=== PATIENT | male | born 1965 | race Caucasian/White ===

== ENCOUNTER 2016-07-27 17:03 | Inpatient (IN) | payer OTHER ==
[2016-07-27] VITALS (29 sets, daily range): BP systolic 200–295; BP diastolic 88–155; PULSE 87–117; RESP 15–32; TEMP 98.1–99.5; O2SAT 94–99
[~2016-07-27] VITALS: Ht 177.8 cm; Wt 108.8 kg
[~2016-07-27 17:03] MED LIST: DILA2TAB4 PO; IBUP-232 PO; PROM25SU8 PO; TAMS0.4C67 PO; Z.0.NO CURRENT MEDS
[2016-07-27] MEDS ORDERED: ASPIRIN 325 MG TAB PO ONE (17:30)
[2016-07-27] MEDS ORDERED: SODIUM CHLORIDE 0.9% FLUSH 5 ML FLUSH IVF PRN (17:30)
[2016-07-27 17:36] LABS: AUTOMATED NEUTROPHIL # 9.9 TH/MM3 (1.8-7.7); BASOPHIL # 0.1 TH/MM3 (0-0.2); BASOPHIL % 0.9 % (0.0-2.0); EOSINOPHIL # 0.3 TH/MM3 (0-0.4); EOSINOPHIL % 2.7 % (0.0-4.0); HEMATOCRIT 42.5 % (39.0-51.0); HEMO FLAGS DIFF FINAL; LYMPHOCYTE # 1.2 TH/MM3 (1.0-4.8); MEAN CORPUSCULAR HEMOGLOBIN 27.8 PG (27.0-34.0); MEAN CORPUSCULAR HGB CONC 33.9 % (32.0-36.0); MONO % 5.6 % (0.0-8.0); NEUT % 80.8 % (16.0-70.0); PLATELET COUNT 268 TH/MM3 (150-450); RED BLOOD COUNT 5.18 MIL/MM3 (4.50-5.90); RED CELL DISTRIBUTION WIDTH 13.6 % (11.6-17.2); WHITE BLOOD COUNT 12.2 TH/MM3 (4.0-11.0)
[2016-07-27] MEDS ORDERED: ASPI-110 PO (17:37)
--- NOTE | 2016-07-27 17:44 | RADRPT ---
EXAM DATE/TIME: 07/27/2016 17:36 [facility] COMPARISON: No previous studies available for comparison. INDICATIONS : Shortness of breath. MEDICAL HISTORY : None. SURGICAL HISTORY : None. ENCOUNTER: Initial ACUITY: 1 week PAIN SCORE: 0/10 LOCATION: Bilateral chest FINDINGS: A single view of the chest demonstrates the lungs to be symmetrically aerated without evidence of mas s, infiltrate or effusion. The cardiomediastinal contours are unremarkable. Osseous structures are intact. CONCLUSION: No acute disease. Anand Sultana MD on July 27, 2016 at 17:43 Board Certified Radiologist. This report was verified electronically.
[2016-07-27] MEDS ORDERED: cloNIDine HCL 0.1 MG TAB PO ONE (17:45)
[2016-07-27] MEDS ORDERED: NITROGLYCERIN-DEXTROSE INJ 250 ML IV SCH (17:45)
--- NOTE | 2016-07-27 17:54 | PD ---
HPI Chief Complaint: Hypertension Time Seen by Provider: 17:47 Travel History International Travel<30 days: No Contact w/Intl Traveler<30days: No Traveled to known affect area: No History of Present Illness HPI 51-year-old male that presents to the ED for evaluation of severe hypertension. Per patient for the past 2 weeks she's been having cold-like symptoms that he acuity to bronchitis. Per patient his been taking [id number] remedies with some relief. Patient took NyQuil and DayQuil as well as some [place] cold medications to help with the cough and runny nose. Per patient he went recently collar out of medication and he came back with the same symptoms. Per patient he went to the urgent care today to get checked for this but the urgent care evaluated him and found that his blood pressure was in the systolic 300s. Patient was told to come here immediately get checked for this. 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 Per patient he didn't go to any medications he didn't think much of it. Per patient he does take aspirin every day and takes all negative fatty acids. Per patient he has no chest pain. Per patient he has no other symptoms or to cough and runny nose. He states that he has no allergies to medication. He does have asked family history of heart disease on the father's side but not on himself. He denies any surgeries to his chest. He denies having a stress test. He denies any other medical problems. Patient does have a strong family history of high blood pressure in the family. [facility] Past Medical History Medical History: Denies Significant Hx Influenza Vaccination: No Past Surgical History Surgical History: No Previous Surgery Social History Alcohol Use: Yes (OCCAS) Tobacco Use: Yes (CIGARS OCCASIONALLY) Substance Use: No Allergies-Medications (Allergen,Severity, Reaction): Coded Allergies: No Known Allergies (Verified , 07/27/16) Reported Meds & Prescriptions Reported Meds & Active Scripts Active Reported Aspirin 81 (Aspirin) 81 Mg Tabdr 81 Mg PO DAILY Review of Systems Except as stated in HPI: all other systems reviewed are Neg Physical Exam Narrative GENERAL: SKIN: Warm and dry. HEAD: Atraumatic. Normocephalic. EYES: Pupils equal and round. No scleral icterus. No injection or drainage. ENT: No nasal bleeding or discharge. Mucous membranes pink and moist. Tongue is midline. No Uvula deviation. NECK: Trachea midline. No JVD. CARDIOVASCULAR: Regular rate and rhythm. No obvious murmurs, S3, S4. RESPIRATORY: No accessory muscle use. Patient has mild wheezing in all lung garcia bilaterally. Breath sounds equal bilaterally. GASTROINTESTINAL: Abdomen soft, non-tender, nondistended. Hepatic and splenic margins not palpable. MUSCULOSKELETAL: Extremities without clubbing, cyanosis, or edema. No obvious deformities. Full range of motion of the upper and lower extremities bilaterally. 2+ pulses bilaterally. NEUROLOGICAL: Awake and alert. No obvious cranial nerve deficits. Motor grossly within normal limits. Five out of 5 muscle strength in the arms and legs. Normal speech. PSYCHIATRIC: Appropriate mood and affect; insight and judgment normal. Data Data Last Documented VS Vital Signs Date Time Temp Pulse Resp B/P Pulse Ox O2 Delivery O2 Flow Rate FiO2 07/27/16 19:45 107 16 228/120 95 Nasal Cannula 2 07/27/16 17:24 98.6 Orders Electrocardiogram (07/27/16 17:25) Basic Metabolic Panel (Bmp) (07/27/16 17:25) Ckmb (Isoenzyme) Profile (07/27/16 17:25) Complete Blood Count With Diff (07/27/16 17:25) D-Dimer (07/27/16 17:25) Magnesium (Mg) (07/27/16 17:25) Prothrombin Time / Inr (Pt) (07/27/16 17:25) Act Partial Throm Time (Ptt) (07/27/16 17:25) Troponin I (07/27/16 17:25) Chest, Single Ap (07/27/16 17:25) Ecg Monitoring (07/27/16 17:25) Bilateral Bp Monitoring (07/27/16 17:25) Iv Access Insert/Monitor (07/27/16 17:25) Oximetry (07/27/16 17:25) Oxygen Administration (07/27/16 17:25) Aspirin (Aspirin) (07/27/16 17:30) Sodium Chloride 0.9% Flush (Ns Flush) (07/27/16 17:30) Clonidine (Catapres) (07/27/16 17:45) Nitroglycerin-Dextrose Inj (Nitroglyceri (07/27/16 17:45) CKMB (07/27/16 17:29) CKMB% (07/27/16 17:29) B-Type Natriuretic Peptide (07/27/16 18:08) Ct Pulmonary Angiogram (07/27/16 18:20) Iohexol 350 Inj (Omnipaque 350 Inj) (07/27/16 19:50) Blood Culture (07/27/16 20:04) Ceftriaxone Inj (Rocephin Inj) (07/27/16 20:15) Azithromycin Inj (Zithromax Inj) (07/27/16 20:15) Potassium Chloride (Kcl) (07/27/16 20:15) Admit Order (Ed Use Only) (07/27/16 20:04) Labs Laboratory Tests Test 07/27/16 17:29 White Blood Count 12.2 TH/MM3 Red Blood Count 5.18 MIL/MM3 Hemoglobin 14.4 GM/DL Hematocrit 42.5 % Mean Corpuscular Volume 82.0 FL Mean Corpuscular Hemoglobin 27.8 PG Mean Corpuscular Hemoglobin 33.9 % Concent Red Cell Distribution Width 13.6 % Platelet Count 268 TH/MM3 Mean Platelet Volume 7.0 FL Neutrophils (%) (Auto) 80.8 % Lymphocytes (%) (Auto) 10.0 % Monocytes (%) (Auto) 5.6 % Eosinophils (%) (Auto) 2.7 % Basophils (%) (Auto) 0.9 % Neutrophils # (Auto) 9.9 TH/MM3 Lymphocytes # (Auto) 1.2 TH/MM3 Monocytes # (Auto) 0.7 TH/MM3 Eosinophils # (Auto) 0.3 TH/MM3 Basophils # (Auto) 0.1 TH/MM3 CBC Comment DIFF FINAL Differential Comment Prothrombin Time 11.1 SEC Prothromb Time International 1.0 RATIO Ratio Activated Partial 33.8 SEC Thromboplast Time D-Dimer Quantitative (PE/DVT) 0.95 MG/L FEU Sodium Level 138 MEQ/L Potassium Level 3.1 MEQ/L Chloride Level 100 MEQ/L Carbon Dioxide Level 29.2 MEQ/L Anion Gap 9 MEQ/L Blood Urea Nitrogen 16 MG/DL Creatinine 1.38 MG/DL Estimat Glomerular Filtration 55 ML/MIN Rate Random Glucose 109 MG/DL Calcium Level 8.9 MG/DL Magnesium Level 2.3 MG/DL Total Creatine Kinase 162 U/L Creatine Kinase MB 0.9 NG/ML Troponin I 0.02 NG/ML B-Type Natriuretic Peptide 201 PG/ML MDM Medical Decision Making Medical Screen Exam Complete: Yes Emergency Medical Condition: Yes Medical Record Reviewed: Yes Interpretation(s) CBC & BMP Diagram 07/27/16 17:29 d-dimmer positive in the .90s troponin negative BNp slightly elevated EKG shows sinus tachycardia with no sign of acute ischemia read by me and attending. Last Impressions CT Angiography 07/27/16 1820 Signed Impressions: Service Date/Time: July 19:32 - CONCLUSION: 1. No pulmonary embolus. 2. Suspected mild failure. Heart size relatively normal. Small to moderate, age and etiology-indeterminate pericardial effusion. Doubt tamponade. 3. Fatty liver. Anand Goodman MD Chest X-Ray 07/27/16 1725 Signed Impressions: Service Date/Time: July 17:36 - CONCLUSION: No acute disease. Anand Sultana MD Differential Diagnosis Hypertensive emergency versus hypertensive urgency versus bronchitis versus chest pain versus ACS versus PE Narrative Course 51-year-old male that presents to the ED for evaluation of hypertension. Patient was properly examined and was found to have signs and symptoms very concerning for hypertensive emergency. That EKG initially shows sinus tachycardia with some ST changes which are concerning. Case was discussed with my attending who recommends cardiac workup. Patient does tell me and my attending who evaluated the patient his been taking a lot of cough medicine with phenylephrine. Labs and imaging were ordered. Patient was a valid by my attending who recommends starting nitro drip. Patient was started nitro drip. Patient had elevated d-dimer therefore pulmonary angiogram was ordered. Pulmonary angiogram was negative for PE but did show some pulmonary edema. Case was discussed in my attending Dr. Bauer who recommends admission. He himself spoke with Dr. Roth who agrees to admission to the [facility] unit and start treatment for possible pneumonia secondary to the pulmonary effusion and possible consolidation with consult to cardiology. Patient and family were made aware of findings and agree with plan. Procedures EKG Prior to Arrival: No Diagnosis Primary Impression: Hypertensive emergency Additional Impression: Pneumonia Qualified Code: J18.9 - Pneumonia of both lungs due to infectious organism, unspecified part of lung Admitting Information Admitting Physician Requests: Admit Mike Nunez Jul 27, 2016 17:54
[2016-07-27 17:57] LABS: ANION GAP 9 MEQ/L (5-15); BICARBONATE 29.2 MEQ/L (21.0-32.0); BLOOD UREA NITROGEN 16 MG/DL (7-18); CHLORIDE 100 MEQ/L (98-107); GLOMERULAR FILTRATION RATE 55 ML/MIN (>89); MAGNESIUM 2.3 MG/DL (1.5-2.5); POTASSIUM 3.1 MEQ/L (3.5-5.1); SODIUM (NA) 138 MEQ/L (136-145)
[2016-07-27 18:00] LABS: CREATINE KINASE 162 U/L (39-308)
[2016-07-27 18:11] LABS: APTT (PATIENT) 33.8 SEC (24.3-30.1); PROTHROMBIN TIME - PATIENT 11.1 SEC (9.8-11.6)
[2016-07-27 18:12] LABS: CKMB 0.9 NG/ML (0.5-3.6)
--- NOTE | 2016-07-27 19:16 | PD ---
Physical Exam Date Seen by Provider: Jul 27, 2016 Time Seen by Provider: 18:00 Narrative I, Dr. Alegre, have reviewed the advance practice practitioner's documentation and am in agreement, met with the patient face to face, made the diagnosis, and the medical decision making was done by me. *My assessment and Findings: Patient seen and evaluated with PA, here with significant blood pressure elevations, sent in by urgent care after having been seen for cough cold symptoms and shortness of breath. Please see PA note for further details. He has been on cold remedies which include phenylephrine. Patient was initiated on IV nitroglycerin for his significant blood pressure elevations. EKG shows signs of LVH. Lab work initiated, planning to admit the patient for further treatment. Data Data Last Documented VS Vital Signs Date Time Temp Pulse Resp B/P Pulse Ox O2 Delivery O2 Flow Rate FiO2 07/27/16 19:08 108 16 274/145 97 Nasal Cannula 2 07/27/16 17:24 98.6 Orders Electrocardiogram (07/27/16 17:25) Basic Metabolic Panel (Bmp) (07/27/16 17:25) Ckmb (Isoenzyme) Profile (07/27/16 17:25) Complete Blood Count With Diff (07/27/16 17:25) D-Dimer (07/27/16 17:25) Magnesium (Mg) (07/27/16 17:25) Prothrombin Time / Inr (Pt) (07/27/16 17:25) Act Partial Throm Time (Ptt) (07/27/16 17:25) Troponin I (07/27/16 17:25) Chest, Single Ap (07/27/16 17:25) Ecg Monitoring (07/27/16 17:25) Bilateral Bp Monitoring (07/27/16 17:25) Iv Access Insert/Monitor (07/27/16 17:25) Oximetry (07/27/16 17:25) Oxygen Administration (07/27/16 17:25) Aspirin (Aspirin) (07/27/16 17:30) Sodium Chloride 0.9% Flush (Ns Flush) (07/27/16 17:30) Clonidine (Catapres) (07/27/16 17:45) Nitroglycerin-Dextrose Inj (Nitroglyceri (07/27/16 17:45) CKMB (07/27/16 17:29) CKMB% (07/27/16 17:29) B-Type Natriuretic Peptide (07/27/16 18:08) Ct Pulmonary Angiogram (07/27/16 18:20) Labs Laboratory Tests Test 07/27/16 17:29 White Blood Count 12.2 TH/MM3 Red Blood Count 5.18 MIL/MM3 Hemoglobin 14.4 GM/DL Hematocrit 42.5 % Mean Corpuscular Volume 82.0 FL Mean Corpuscular Hemoglobin 27.8 PG Mean Corpuscular Hemoglobin 33.9 % Concent Red Cell Distribution Width 13.6 % Platelet Count 268 TH/MM3 Mean Platelet Volume 7.0 FL Neutrophils (%) (Auto) 80.8 % Lymphocytes (%) (Auto) 10.0 % Monocytes (%) (Auto) 5.6 % Eosinophils (%) (Auto) 2.7 % Basophils (%) (Auto) 0.9 % Neutrophils # (Auto) 9.9 TH/MM3 Lymphocytes # (Auto) 1.2 TH/MM3 Monocytes # (Auto) 0.7 TH/MM3 Eosinophils # (Auto) 0.3 TH/MM3 Basophils # (Auto) 0.1 TH/MM3 CBC Comment DIFF FINAL Differential Comment Prothrombin Time 11.1 SEC Prothromb Time International 1.0 RATIO Ratio Activated Partial 33.8 SEC Thromboplast Time D-Dimer Quantitative (PE/DVT) 0.95 MG/L FEU Sodium Level 138 MEQ/L Potassium Level 3.1 MEQ/L Chloride Level 100 MEQ/L Carbon Dioxide Level 29.2 MEQ/L Anion Gap 9 MEQ/L Blood Urea Nitrogen 16 MG/DL Creatinine 1.38 MG/DL Estimat Glomerular Filtration 55 ML/MIN Rate Random Glucose 109 MG/DL Calcium Level 8.9 MG/DL Magnesium Level 2.3 MG/DL Total Creatine Kinase 162 U/L Creatine Kinase MB 0.9 NG/ML Troponin I 0.02 NG/ML B-Type Natriuretic Peptide 201 PG/ML [facility] Medical Record Reviewed: Yes Supervised Visit with MIKY: Yes Diagnosis Primary Impression: HYPERTENSIVE EMERGENCY Admitting Information Admitting Physician Requests: Admit Yuval Alegre MD Jul 27, 2016 19:16
--- NOTE | 2016-07-27 19:27 | PD ---
Data Data Last Documented VS Vital Signs Date Time Temp Pulse Resp B/P Pulse Ox O2 Delivery O2 Flow Rate FiO2 07/27/16 20:00 103 16 223/116 95 Nasal Cannula 2 07/27/16 17:24 98.6 Orders Electrocardiogram (07/27/16 17:25) Basic Metabolic Panel (Bmp) (07/27/16 17:25) Ckmb (Isoenzyme) Profile (07/27/16 17:25) Complete Blood Count With Diff (07/27/16 17:25) D-Dimer (07/27/16 17:25) Magnesium (Mg) (07/27/16 17:25) Prothrombin Time / Inr (Pt) (07/27/16 17:25) Act Partial Throm Time (Ptt) (07/27/16 17:25) Troponin I (07/27/16 17:25) Chest, Single Ap (07/27/16 17:25) Ecg Monitoring (07/27/16 17:25) Bilateral Bp Monitoring (07/27/16 17:25) Iv Access Insert/Monitor (07/27/16 17:25) Oximetry (07/27/16 17:25) Oxygen Administration (07/27/16 17:25) Aspirin (Aspirin) (07/27/16 17:30) Sodium Chloride 0.9% Flush (Ns Flush) (07/27/16 17:30) Clonidine (Catapres) (07/27/16 17:45) Nitroglycerin-Dextrose Inj (Nitroglyceri (07/27/16 17:45) CKMB (07/27/16 17:29) CKMB% (07/27/16 17:29) B-Type Natriuretic Peptide (07/27/16 18:08) Ct Pulmonary Angiogram (07/27/16 18:20) Iohexol 350 Inj (Omnipaque 350 Inj) (07/27/16 19:50) Blood Culture (07/27/16 20:04) Ceftriaxone Inj (Rocephin Inj) (07/27/16 20:15) Azithromycin Inj (Zithromax Inj) (07/27/16 20:15) Potassium Chloride (Kcl) (07/27/16 20:15) Admit Order (Ed Use Only) (07/27/16 20:04) Labs Laboratory Tests Test 07/27/16 17:29 White Blood Count 12.2 TH/MM3 Red Blood Count 5.18 MIL/MM3 Hemoglobin 14.4 GM/DL Hematocrit 42.5 % Mean Corpuscular Volume 82.0 FL Mean Corpuscular Hemoglobin 27.8 PG Mean Corpuscular Hemoglobin 33.9 % Concent Red Cell Distribution Width 13.6 % Platelet Count 268 TH/MM3 Mean Platelet Volume 7.0 FL Neutrophils (%) (Auto) 80.8 % Lymphocytes (%) (Auto) 10.0 % Monocytes (%) (Auto) 5.6 % Eosinophils (%) (Auto) 2.7 % Basophils (%) (Auto) 0.9 % Neutrophils # (Auto) 9.9 TH/MM3 Lymphocytes # (Auto) 1.2 TH/MM3 Monocytes # (Auto) 0.7 TH/MM3 Eosinophils # (Auto) 0.3 TH/MM3 Basophils # (Auto) 0.1 TH/MM3 CBC Comment DIFF FINAL Differential Comment Prothrombin Time 11.1 SEC Prothromb Time International 1.0 RATIO Ratio Activated Partial 33.8 SEC Thromboplast Time D-Dimer Quantitative (PE/DVT) 0.95 MG/L FEU Sodium Level 138 MEQ/L Potassium Level 3.1 MEQ/L Chloride Level 100 MEQ/L Carbon Dioxide Level 29.2 MEQ/L Anion Gap 9 MEQ/L Blood Urea Nitrogen 16 MG/DL Creatinine 1.38 MG/DL Estimat Glomerular Filtration 55 ML/MIN Rate Random Glucose 109 MG/DL Hemoglobin A1c 5.0 % Calcium Level 8.9 MG/DL Magnesium Level 2.3 MG/DL Total Bilirubin 1.1 MG/DL Direct Bilirubin 0.3 MG/DL Indirect Bilirubin 0.8 MG/DL Aspartate Amino Transf 23 U/L (AST/SGOT) Alanine Aminotransferase 43 U/L (ALT/SGPT) Alkaline Phosphatase 77 U/L Total Creatine Kinase 162 U/L Creatine Kinase MB 0.9 NG/ML Troponin I 0.03 NG/ML B-Type Natriuretic Peptide 201 PG/ML Total Protein 8.0 GM/DL Albumin 4.1 GM/DL Triglycerides Level 110 MG/DL Cholesterol Level 215 MG/DL LDL Cholesterol 155 MG/DL HDL Cholesterol 37.7 MG/DL Cholesterol/HDL Ratio 5.70 RATIO [facility] Medical Record Reviewed: Yes Supervised Visit with MIKY: Yes Narrative Course Pt was seen by me at 705PM. He has no chest pain or medical complaint aside from URI symptoms. Nitroglycerin drip increased at that time from 40mcg to 50mcg. We'll monitor closely. CTA pending. BP approx 270/145. At 727PM the BP improved to 255/130. CBC & BMP Diagram 07/27/16 17:29 Troponin 0.02 EKG reveals a sinus rhythm with some straining pattern QRS complexes and ST-T changes Nitroglycerin drip, continued to improve blood pressure to about 200/100 or so. Case discussed with Dr. Chacon. She will be admitted to the [facility] for blood pressure monitoring serial enzymes and EKG. he remained CP free throughout ER stay. Diagnosis Primary Impression: Hypertensive emergency Additional Impression: Pneumonia Qualified Code: J18.9 - Pneumonia of both lungs due to infectious organism, unspecified part of lung Admitting Information Admitting Physician Requests: Jayden Louis MD Jul 27, 2016 19:27
[2016-07-27] MEDS ORDERED: IOHEXOL 350 MG/ML 10 ML VIAL (for RAD DIAG) IV ONE (19:50)
--- NOTE | 2016-07-27 20:00 | RADRPT ---
EXAM DATE/TIME: 07/27/2016 19:32 [facility] COMPARISON: No previous studies available for comparison. INDICATIONS : Flu like symptomes for two weeks,elavated blood pressure. IV CONTRAST: 50 cc Omnipaque 350 (iohexol) IV RADIATION DOSE: 25.62 CTDIvol (mGy) MEDICAL HISTORY : None SURGICAL HISTORY : None. ENCOUNTER: Initial ACUITY: 2 weeks PAIN SCALE: 0/10 LOCATION: chest TECHNIQUE: Volumetric scanning of the chest was performed using a pulmonary embolism protocol MIP images were re constructed. Using automated exposure control and adjustment of the mA and/or kV according to patien t size, radiation dose was kept as low as reasonably achievable to obtain optimal diagnostic quality images. FINDINGS: There is no pulmonary embolus. Mild mid and lower lung predominant groundglass infiltrates seen of both lungs and mild thickeni ng of the interlobular septa. There are small, bilateral pleural effusions. There is also small to mo derate pericardial effusion. Heart size normal. No adenopathy demonstrated. Upper abdomen partly included on this study and there is fatty infiltration of the liver. CONCLUSION: 1. No pulmonary embolus. 2. Suspected mild failure. Heart size relatively normal. Small to moderate, age and etiology-indeterm inate pericardial effusion. Doubt tamponade. 3. Fatty liver. Anand Goodman MD on July 27, 2016 at 19:55 Board Certified Radiologist. This report was verified electronically.
[2016-07-27] MEDS ORDERED: cefTRIAXone INJ 1,000 MG in SODIUM CHLORIDE 0.9% INJ 100 ML IV ONE (20:15)
[2016-07-27] MEDS ORDERED: POTASSIUM CHLORIDE 20 MEQ CONTROLLED RELEASE TAB PO ONE ×2 (20:15→23:00)
[2016-07-27] MEDS ORDERED: AZITHROMYCIN INJ 500 MG in SODIUM CHLOR 0.9% 250 ML INJ 250 ML IV ONE (20:15)
[2016-07-27] MEDS ORDERED: TEMAZEPAM 15 MG CAP PO PRN (20:30)
[2016-07-27] MEDS ORDERED: ONDANSETRON HCL 4 MG/2 ML VIAL IVP PRN (20:30)
[2016-07-27] MEDS ORDERED: BISACODYL 10 MG SUPP PR PRN (20:30)
[2016-07-27] MEDS ORDERED: SENNOSIDES 8.6 MG TAB PO PRN (20:30)
[2016-07-27] MEDS ORDERED: PROCHLORPERAZINE 25 MG SUPP PR PRN (20:30)
[2016-07-27] MEDS ORDERED: POTASSIUM CHLORIDE 10 MEQ CONTROLLED RELEASE TAB PO ONE (20:30)
[2016-07-27] MEDS ORDERED: MAGNESIUM HYDROXIDE SUSP 30 ML CUP PO PRN (20:30)
[2016-07-27] MEDS ORDERED: ACETAMINOPHEN 325 MG TAB PO PRN (20:30)
[2016-07-27] MEDS ORDERED: SODIUM CHLORIDE 0.9% FLUSH 5 ML FLUSH FLUSH PRN (20:30)
[2016-07-27 21:39] LABS: ALKALINE PHOSPHATASE 77 U/L (45-117); ALT (GPT) 43 U/L (12-78); AST (GOT) 23 U/L (15-37); HDL CHOLESTEROL 37.7 MG/DL (40.0-60.0); INDIRECT BILIRUBIN 0.8 MG/DL (0.0-0.8); LDL CHOLESTEROL 155 MG/DL (0-99); TOTAL BILIRUBIN ADULT 1.1 MG/DL (0.2-1.0)
[2016-07-27] MEDS: ENOXAPARIN SODIUM 40 MG/0.4 ML SYRINGE SQ SCH (22:33)
[2016-07-27] MEDS: SODIUM CHLORIDE 0.9% FLUSH 5 ML FLUSH FLUSH SCH (22:33)
[2016-07-27 22:36] LABS: HEMOGLOBIN A1a 0.7 %; HEMOGLOBIN A1b 1.4 %; HEMOGLOBIN Ao 86.9 %; HEMOGLOBIN LA1C 1.9 %; HEMOGLOBIN P3 3.7 %
[2016-07-27] MEDS ORDERED: FUROSEMIDE 20 MG/2 ML VIAL IV PUSH ONE (23:00)
--- NOTE | 2016-07-27 23:12 | HHI.HP ---
[facility] Shyann De La Cruz MD Admission Diagnosis hypertensive emergency, pneumonia, heart failure Diagnoses: Chief Complaint: sob, cough Travel History International Travel<30 Days: No Contact w/Intl Traveler <30 Da: No Traveled to Known Affected Are: No History of Present Illness 51-year-old male without PMH that presents to the ED for evaluation of severe hypertension. Per patient for the past 2 weeks she's been having cold-like symptoms that he acuity to bronchitis. Per patient his been taking over-the- counter remedies with some relief. Patient took NyQuil and DayQuil as well as some [place] cold medications to help with the cough and runny nose. Per patient he went recently collar out of medication and he came back with the same symptoms. Per patient he went to the urgent care today to get checked for this but the urgent care evaluated him and found that his blood pressure was in the systolic 300s. Patient was told to come here immediately get checked for this. 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 Per patient he didn't go to any medications he didn't think much of it. Per patient he does take aspirin every day and takes all negative fatty acids. Per patient he has no chest pain. Per patient he has no other symptoms or to cough and runny nose. He states that he has no allergies to medication. He does have asked family history of heart disease on the father's side but not on himself. He denies any surgeries to his chest. He denies having a stress test. He denies any other medical problems. Patient does have a strong family history of high blood pressure in the family. Review of Systems Constitutional: DENIES: Fever, Chills, Change in appetite Endocrine: DENIES: Heat/cold intolerance Eyes: DENIES: Blurred vision, Eye pain Ears, nose, mouth, throat: DENIES: Tinnitus, Hearing loss, Vertigo, Nasal discharge, Oral lesions, Throat pain, Hoarseness, Ear Pain, Running Nose, Epistaxis, Sinus Pain, Toothache, Odynophagia Respiratory: COMPLAINS OF: Cough, Shortness of breath, DENIES: Apneas, Snoring , Wheezing, Hemoptysis, Sputum production Cardiovascular: COMPLAINS OF: Orthopnea, DENIES: Chest pain, Palpitations, Syncope, Dyspnea on Exertion, PND, Lower Extremity Edema, Claudication Gastrointestinal: DENIES: Abdominal pain, Black stools, Bloody stools, Constipation, Diarrhea, Nausea, Vomiting, Difficulty Swallowing, Anorexia Genitourinary: DENIES: Urgency, Hematuria, Dysuria, Nocturia Musculoskeletal: DENIES: Joint pain, Muscle aches, Stiffness, Joint Swelling, Back pain, Neck pain Integumentary: DENIES: Rash Neurologic: DENIES: Abnormal gait, Headache, Localized weakness, Paresthesias, Seizures, Speech Problems, Tremor, Poor Balance Psychiatric: DENIES: Anxiety, Depression Past Family Social History Past Medical History HTN controlled by diet and exercise per patient Past Surgical History None Reported Medications Last Impressions CT Angiography 07/27/16 1820 Signed Impressions: Service Date/Time: July 19:32 - CONCLUSION: 1. No pulmonary embolus. 2. Suspected mild failure. Heart size relatively normal. Small to moderate, age and etiology-indeterminate pericardial effusion. Doubt tamponade. 3. Fatty liver. Anand Goodman MD Chest X-Ray 07/27/16 1725 Signed Impressions: Service Date/Time: July 17:36 - CONCLUSION: No acute disease. Anand Sultana MD Allergies: Coded Allergies: No Known Allergies (Verified , 07/27/16) Family History Mother: HTN Father had a stroke at the age of 78 Social History Denies EtOH use, illicit drug use, tobacco use. Physical Exam Vital Signs Vital Signs Date Time Temp Pulse Resp B/P Pulse Ox O2 Delivery O2 Flow Rate FiO2 07/27/16 22:30 93 16 219/111 96 Nasal Cannula 2 07/27/16 22:20 94 16 221/116 96 Nasal Cannula 2 07/27/16 22:00 93 16 225/113 96 Nasal Cannula 2 07/27/16 21:50 98 16 243/122 96 Nasal Cannula 2 07/27/16 21:30 96 16 223/114 96 Nasal Cannula 2 07/27/16 21:20 97 16 239/123 95 Nasal Cannula 2 07/27/16 21:10 98 16 231/112 95 Nasal Cannula 2 07/27/16 21:00 97 16 238/112 95 Nasal Cannula 2 07/27/16 20:50 97 16 200/88 95 Nasal Cannula 2 07/27/16 20:30 99 16 219/101 96 Nasal Cannula 2 07/27/16 20:20 101 16 232/112 95 Nasal Cannula 2 07/27/16 20:10 102 16 216/104 96 Nasal Cannula 2 07/27/16 20:00 103 16 223/116 95 Nasal Cannula 2 07/27/16 19:50 104 16 230/116 95 Nasal Cannula 2 07/27/16 19:45 107 16 228/120 95 Nasal Cannula 2 07/27/16 19:25 106 16 255/130 96 Nasal Cannula 2 07/27/16 19:20 107 16 264/132 96 Nasal Cannula 2 07/27/16 19:15 109 16 267/134 96 Nasal Cannula 2 07/27/16 19:10 111 16 271/133 96 Room Air 07/27/16 19:08 108 16 274/145 97 Nasal Cannula 2 07/27/16 18:53 111 24 276/147 97 Nasal Cannula 2 07/27/16 18:30 108 32 279/139 97 Nasal Cannula 2 07/27/16 18:07 104 15 276/139 96 Nasal Cannula 2 07/27/16 17:57 105 30 275/142 94 Nasal Cannula 2 07/27/16 17:24 98.6 117 22 95 07/27/16 17:13 295/155 07/27/16 17:12 98.1 87 15 290/140 97 Physical Exam GENERAL: This is a well-nourished, well-developed patient, in no apparent distress. SKIN: No rashes, ecchymoses or lesions. Cool and dry. HEAD: Atraumatic. Normocephalic. No temporal or scalp tenderness. EYES: Pupils equal round and reactive. Extraocular motions intact. No scleral icterus. No injection or drainage. ENT: Nose without bleeding, purulent drainage or septal hematoma. Throat without erythema, tonsillar hypertrophy or exudate. Uvula midline. Airway patent. NECK: Trachea midline. No JVD or lymphadenopathy. Supple, nontender, no meningeal signs. CARDIOVASCULAR: Regular rate and rhythm without murmurs, gallops, or rubs. RESPIRATORY: Clear to auscultation. Breath sounds equal bilaterally. No wheezes , rales, or rhonchi. GASTROINTESTINAL: Abdomen soft, non-tender, nondistended. No hepato-splenomegaly , or palpable masses. No guarding. MUSCULOSKELETAL: Extremities without clubbing, cyanosis, or edema. No joint tenderness, effusion, or edema noted. No calf tenderness. Negative Homans sign bilaterally. NEUROLOGICAL: Awake and alert. Cranial nerves II through XII intact. Motor and sensory grossly within normal limits. Five out of 5 muscle strength in all muscle groups. Normal speech. Laboratory Laboratory Tests Test 07/27/16 17:29 White Blood Count 12.2 Red Blood Count 5.18 Hemoglobin 14.4 Hematocrit 42.5 Mean Corpuscular Volume 82.0 Mean Corpuscular Hemoglobin 27.8 Mean Corpuscular Hemoglobin 33.9 Concent Red Cell Distribution Width 13.6 Platelet Count 268 Mean Platelet Volume 7.0 Neutrophils (%) (Auto) 80.8 Lymphocytes (%) (Auto) 10.0 Monocytes (%) (Auto) 5.6 Eosinophils (%) (Auto) 2.7 Basophils (%) (Auto) 0.9 Neutrophils # (Auto) 9.9 Lymphocytes # (Auto) 1.2 Monocytes # (Auto) 0.7 Eosinophils # (Auto) 0.3 Basophils # (Auto) 0.1 CBC Comment DIFF FINAL Differential Comment Prothrombin Time 11.1 Prothromb Time International 1.0 Ratio Activated Partial 33.8 Thromboplast Time D-Dimer Quantitative (PE/DVT) 0.95 Sodium Level 138 Potassium Level 3.1 Chloride Level 100 Carbon Dioxide Level 29.2 Anion Gap 9 Blood Urea Nitrogen 16 Creatinine 1.38 Estimat Glomerular Filtration 55 Rate Random Glucose 109 Hemoglobin A1c 5.0 Calcium Level 8.9 Magnesium Level 2.3 Total Bilirubin 1.1 Direct Bilirubin 0.3 Indirect Bilirubin 0.8 Aspartate Amino Transf 23 (AST/SGOT) Alanine Aminotransferase 43 (ALT/SGPT) Alkaline Phosphatase 77 Total Creatine Kinase 162 Creatine Kinase MB 0.9 Troponin I 0.03 B-Type Natriuretic Peptide 201 Total Protein 8.0 Albumin 4.1 Triglycerides Level 110 Cholesterol Level 215 LDL Cholesterol 155 HDL Cholesterol 37.7 Cholesterol/HDL Ratio 5.70 Date/Time Procedure Status Source Growth 07/27/16 20:40 Aerobic Blood Culture Received Blood Peripheral Pending 07/27/16 20:40 Anaerobic Blood Culture Received Blood Peripheral Pending Result Diagram: 07/27/16 1729 07/27/16 1729 Assessment and Plan Assessment and Plan 51-year-old male that presents to the ED for evaluation of cough/ sob, HTN; Hypertensive emergency. Patient with SOB, ALAN D-dimmer positive in the .90s . No PE on CTA. CTA reviewed 1. No pulmonary embolus. 2. Suspected mild failure. Heart size relatively normal. Small to moderate, age and etiology-indeterminate pericardial effusion. Doubt tamponade. 3. Fatty liver. EKG shows sinus tachycardia with no sign of acute ischemia However 2nd EKG is changed and shows ischemic changes. Dr Arndt cardiology was notified by the changes. Initially patient received IV abx in the ER. He was also started on nitro drip as BP on admission of 290/140. Improved with nitro drip but required 120 mcgs. Switched to labetalol drip and transfer to ICU. Troponin negative x3 BNP slightly elevated. Received one dose of lasix IV 20 mg. Good UOP. Monitor UOP. Cardiology was consulted, Dr Arndt, notified of EKG findings. Check lipid panel, A1c. Obesity with BMI of 33. Counselled. Adviced healthy diet and exercise. Start metoprolol po and statin Monitor VS closely DVT ppx lovenox/ SCD/ TEDs Code Status full Discussed Condition With Patient, nurse, ED physician Physician Certification 2 Midnight Certification Type: Admission for Inpatient Services Order for Inpatient Services The services are ordered in accordance with Medicare regulations or non- Medicare payer requirements, as applicable. In the case of services not specified as inpatient-only, they are appropriately provided as inpatient services in accordance with the 2-midnight benchmark. Estimated LOS (days): 3 days is the estimated time the patient will need to remain in the hospital, assuming treatment plan goals are met and no additional complications. Post-Hospital Plan: Home Estephania Chacon MD Jul 27, 2016 23:12
[2016-07-27] MEDS: METOPROLOL TARTRATE 25 MG TAB PO SCH (23:23)
[2016-07-28] VITALS (13 sets, daily range): BP systolic 140–220; BP diastolic 73–111; PULSE 66–100; RESP 14–18; TEMP 97.9–98.6; O2SAT 93–99
[2016-07-28] MEDS ORDERED: LABETALOL INJ 500 MG in SODIUM CHLOR 0.9% 250 ML INJ 150 ML IV SCH (00:15)
[2016-07-28] MEDS ORDERED: LABETALOL HCL 100 MG/20 ML VIAL IV PUSH PRN (00:15)
[2016-07-28] MEDS ORDERED: CHLORHEXIDINE GLUCONATE 2 % 1 PACK (2 CLOTHS)(extra cloths) TOP PRN (02:30)
[2016-07-28] MEDS: CHLORHEXIDINE GLUCONATE 2 % 1 PACK (2 CLOTHS)(taper/protocol) TOP SCH (02:45)
[2016-07-28 04:46] LABS: AUTOMATED NEUTROPHIL # 8.7 TH/MM3 (1.8-7.7); BASOPHIL # 0.1 TH/MM3 (0-0.2); BASOPHIL % 0.5 % (0.0-2.0); EOSINOPHIL # 0.2 TH/MM3 (0-0.4); EOSINOPHIL % 1.8 % (0.0-4.0); HEMATOCRIT 34.5 % (39.0-51.0); HEMO FLAGS DIFF FINAL; MEAN CELL VOLUME 81.5 FL (80.0-100.0); MEAN CORPUSCULAR HEMOGLOBIN 28.1 PG (27.0-34.0); MEAN CORPUSCULAR HGB CONC 34.5 % (32.0-36.0); NEUT % 81.7 % (16.0-70.0); PLATELET COUNT 211 TH/MM3 (150-450); RED BLOOD COUNT 4.24 MIL/MM3 (4.50-5.90); RED CELL DISTRIBUTION WIDTH 13.7 % (11.6-17.2); WHITE BLOOD COUNT 10.7 TH/MM3 (4.0-11.0)
[2016-07-28 05:38] LABS: ALKALINE PHOSPHATASE 60 U/L (45-117); ALT (GPT) 29 U/L (12-78); ANION GAP 9 MEQ/L (5-15); AST (GOT) 14 U/L (15-37); BICARBONATE 28.8 MEQ/L (21.0-32.0); BLOOD UREA NITROGEN 16 MG/DL (7-18); CHLORIDE 100 MEQ/L (98-107); GLOMERULAR FILTRATION RATE 63 ML/MIN (>89); POTASSIUM 3.3 MEQ/L (3.5-5.1); SODIUM (NA) 138 MEQ/L (136-145)
[2016-07-28] MEDS: METOPROLOL TARTRATE 25 MG TAB PO SCH ×3 (05:50→19:49)
[2016-07-28] MEDS ORDERED: POTASSIUM CHLORIDE 10 MEQ CONTROLLED RELEASE TAB PO ONE (06:30)
[2016-07-28] MEDS: ASPIRIN EC 81 MG TABEC PO SCH (08:51)
[2016-07-28] MEDS: SODIUM CHLORIDE 0.9% FLUSH 5 ML FLUSH FLUSH SCH ×2 (08:51→19:49)
--- NOTE | 2016-07-28 13:12 | MB ---
cc: BUCK MILNER,MAR PARRA,MOSHE Love MD DATE OF CONSULTATION 07/28/[address] Mar De La Cruz REASON FOR CONSULTATION Hypertension with EKG changes. HISTORY OF PRESENT ILLNESS Mahendra Noel is a pleasant 51-year-old male who presented to [facility] emergency room on July 28, 2016 due to continual cough. He states that he and his family were recently in [place] and he has been having cold-like symptoms with a continual cough concerning for bronchitis. He had taken a bunch of ecyc-byo-qwnscxe remedies for some relief which included those with phenylephrine. He had talked to a couple of friends and they said they had a similar cough and had been given a Z-Arjun for it. He decided he would go an Urgent Care, but while there, he was found to have a blood pressure with a systolic in the upper 200s. He was told immediately to come to the emergency room. On arrival to the emergency room, blood pressure was 290/140. In speaking to him, he has not noticed any chest pain, shortness of breath, lightheadedness or dizziness. He last was checked by a doctor around a year ago and was told that his systolic blood pressure was 140. Overnight, he was placed on a nitro drip and then a labetalol drip. As of this morning, Labetalol drip had been turned off his blood pressures 160/85. PAST MEDICAL HISTORY Hypertension PAST SURGICAL HISTORY Denies ALLERGIES NO KNOWN DRUG ALLERGIES. MEDICATIONS Aspirin 81 mg daily SOCIAL HISTORY Drinks rarely possibly one to two beers a weekend. No drinking during week nights. Denies tobacco or illicit drug abuse. FAMILY HISTORY Mother had a history of hypertension. Father had a stroke at the age of 78 and had a history of longstanding hypertension. REVIEW OF SYSTEMS 14 systems were reviewed including osteopathic pertinent positives and negatives above, otherwise negative. PHYSICAL EXAMINATION VITAL SIGNS: Temperature 97.9, heart rate 67, blood pressure 150/70, respirations 18, pulse ox 99% on room air. GENERAL: The patient appears well in no acute distress, alert, awake and oriented x3. HEAD, EYES, EARS, NOSE, AND THROAT: Extraocular muscles intact. Mucous membranes moist. NECK: Supple. No JVD at 45 degrees. No carotid bruits heard bilaterally. He is noted to have thicker neck. HEART: Regular rate and rhythm. Positive first and second heart sounds with no noted murmurs, gallops or rubs. PMI does not appear displaced. LUNGS: Clear to auscultation bilaterally. No wheezes, rales or rhonchi. ABDOMEN: Soft, nontender and nondistended. No organomegaly noted. EXTREMITIES: Show no clubbing, cyanosis or edema. Femoral and distal pulses intact bilaterally. NEUROLOGIC: No focal deficits. SKIN: Warm, dry and intact. OSTEOPATHIC: Mild lordosis. No kyphoscoliosis or paraspinal tender points. LABORATORY FINDINGS White blood cells 10.7, hemoglobin 11.9, hematocrit 34.5, platelets 211, INR 1.0. Potassium 3.3, BUN 16, creatinine 1.22, hemoglobin A1c 5, Troponin negative times four. Total cholesterol 215, LDL of 155, HDL 37.7, triglycerides 110. Electrocardiogram (July 27, 2016 at 2227) normal sinus rhythm at 96 beats per minute, possible left atrial enlargement, probable LVH with secondary ST-T wave changes. IMPRESSION 1. Hypertensive emergency possibly due to longstanding hypertension with a combination of phenylephrine due to cold medications. 2. Acute kidney injury, most likely due to hypertension. 3. EKG changes concerning for ST-elevation myocardial infarction most likely secondary changes of LVH. 4. Obesity with a BMI of 33. 5. notes that he snores quite a bit with a large neck, consideration of obstructive sleep apnea. RECOMMENDATIONS 1. His EKG does appear to have changes concerning, but most likely LVH with secondary changes. 2. We will check a 2-D echo due to his hypertensive episode and EKG changes as well as pericardial effusion noted on CT scan. 3. We will continue aspirin 81 mg daily. 4. He is currently off the labetalol drip and we will continue him on Metoprolol tartrate as well as adding Norvasc. If need be, the next option would be an KEEGAN inhibitor. 5. Agree with starting him on statin therapy due to hyperlipidemia. 6. We will need follow-up outpatient for consideration of possible stress test. 7. I did explain there is some possibility that he might have obstructive sleep apnea and that this should be followed up outpatient. 8. Further recommendations will be made based on the hospital course. Thank you for allowing me to see Mahendra Noel. If there are any questions, please do not hesitate to call. Buck RIVAS/DJL /12:21 PM /12:42 PM
[2016-07-28] MEDS ORDERED: POTASSIUM CHLORIDE 20 MEQ CONTROLLED RELEASE TAB PO ONE (13:30)
--- NOTE | 2016-07-28 14:58 | HHI.PR ---
Subjective Remarks Reports no complaint of chest pain or shortness of breath. Doing okay. No heart palpitations. No headaches. No complaints of weakness or numbness. Objective Vitals Vital Signs Date Time Temp Pulse Resp B/P Pulse Ox O2 Delivery O2 Flow Rate FiO2 07/28/16 14:00 67 07/28/16 12:00 80 07/28/16 10:00 67 07/28/16 08:00 67 07/28/16 08:00 97.9 78 18 150/78 99 07/28/16 06:00 66 07/28/16 04:00 98.1 67 16 140/73 97 07/28/16 04:00 67 07/28/16 02:00 97.9 78 14 201/111 93 Automatic Cuff 07/28/16 02:00 78 07/28/16 00:45 187/109 07/28/16 00:00 100 07/28/16 00:00 220/111 07/27/16 23:33 99.5 98 20 230/129 99 07/27/16 23:00 221/135 Manual Cuff/Auscultation 07/27/16 22:30 93 16 219/111 96 Nasal Cannula 2 07/27/16 22:20 94 16 221/116 96 Nasal Cannula 2 07/27/16 22:00 93 16 225/113 96 Nasal Cannula 2 07/27/16 21:50 98 16 243/122 96 Nasal Cannula 2 07/27/16 21:30 96 16 223/114 96 Nasal Cannula 2 07/27/16 21:20 97 16 239/123 95 Nasal Cannula 2 07/27/16 21:10 98 16 231/112 95 Nasal Cannula 2 07/27/16 21:00 97 16 238/112 95 Nasal Cannula 2 07/27/16 20:50 97 16 200/88 95 Nasal Cannula 2 07/27/16 20:30 99 16 219/101 96 Nasal Cannula 2 07/27/16 20:20 101 16 232/112 95 Nasal Cannula 2 07/27/16 20:10 102 16 216/104 96 Nasal Cannula 2 07/27/16 20:00 103 16 223/116 95 Nasal Cannula 2 07/27/16 19:50 104 16 230/116 95 Nasal Cannula 2 07/27/16 19:45 107 16 228/120 95 Nasal Cannula 2 07/27/16 19:25 106 16 255/130 96 Nasal Cannula 2 07/27/16 19:20 107 16 264/132 96 Nasal Cannula 2 07/27/16 19:15 109 16 267/134 96 Nasal Cannula 2 07/27/16 19:10 111 16 271/133 96 Room Air 07/27/16 19:08 108 16 274/145 97 Nasal Cannula 2 07/27/16 19:08 95 Nasal Cannula 2.00 07/27/16 18:53 111 24 276/147 97 Nasal Cannula 2 07/27/16 18:30 108 32 279/139 97 Nasal Cannula 2 07/27/16 18:07 104 15 276/139 96 Nasal Cannula 2 07/27/16 17:57 105 30 275/142 94 Nasal Cannula 2 07/27/16 17:24 98.6 117 22 95 07/27/16 17:13 295/155 07/27/16 17:12 98.1 87 15 290/140 97 I/O 07/27/16 07/27/16 07/27/16 07/28/16 07/28/16 07/28/16 07:00 15:00 23:00 07:00 15:00 23:00 Intake Total 1239 ml 240 ml Output Total 300 ml Balance 1239 ml -60 ml Intake Oral 240 ml 240 ml IV Total 999 ml Output Urine Total 300 ml Result Diagram: 07/28/16 0420 07/28/16 0420 Other Results Item Value Date Time Troponin I 0.03 NG/ML 07/27/16 1729 Troponin I 0.04 NG/ML 07/27/16 2210 LDL Cholesterol 155 MG/DL H 07/27/16 1729 Cholesterol Level 215 MG/DL H 07/27/16 1729 Imaging Last [address] Angiography 07/27/16 1820 Signed Impressions: Service Date/Time: July 19:32 - CONCLUSION: 1. No pulmonary embolus. 2. Suspected mild failure. Heart size relatively normal. Small to moderate, age and etiology-indeterminate pericardial effusion. Doubt tamponade. 3. Fatty liver. Anand Goodman MD Chest X-Ray 07/27/16 1725 Signed Impressions: Service Date/Time: July 17:36 - CONCLUSION: No acute disease. Anand Sultana MD Objective Remarks GENERAL: This is a well-nourished, well-developed patient, in no apparent distress. CARDIOVASCULAR: Regular rate and rhythm RESPIRATORY: Clear to auscultation. Breath sounds equal bilaterally. No wheezes , rales, or rhonchi. GASTROINTESTINAL: Abdomen soft, non-tender, nondistended. Normal active bowel sounds MUSCULOSKELETAL: Extremities without clubbing, cyanosis, or edema. NEURO: Alert & Oriented x4 to person, place, time, situation. Moves all ext x4 A/P Problem List: (1) Hypertensive emergency ICD Code: I16.1 Status: Acute Assessment and Plan 51-year-old male that presents to the ED for evaluation of cough/ sob, HTN was found to have severe elevated blood pressure; 1. Presenting Hypertensive emergency with symptoms of shortness of breath and acute kidney injury, patient may have chronic kidney disease stage III due to history of uncontrolled blood pressures, initially was on nitro drip however switched to labetalol drip and admitted to ICU. This time attempted to wean off labetalol drip and start by mouth antihypertensives for transfer to telemetry floor. D-dimer positive in the .90s . No PE on CTA. C. 2. Suspected mild failure. Heart size relatively normal. Small to moderate, age and etiology- indeterminate pericardial effusion. Cardiology consultation obtained and 2-D echo also pending.. EKG shows sinus tachycardia with no sign of acute ischemia However 2nd EKG is changed and shows ischemic changes. Dr Arndt cardiology was notified by the changes, patient remains asymptomatic along with having negative cardiac enzymes.. 2. Acute kidney injury with underlying chronic kidney disease stage III from likely long-term uncontrolled hypertension 3. Obesity with BMI of 33. Weight loss counseling, check lipid profile, A1c - hyperlipidemia start statin 4. DVT prophylaxisLovenox and SCDs. 5. Hypokalemiareplete Discharge Planning Possible discharge in the morning pending card etiology evaluation and cardiac workup. Teagan Martínez MD Jul 28, 2016 14:58
[2016-07-28] MEDS ORDERED: LISINOPRIL 10 MG TAB PO ONE (15:00)
[2016-07-28] MEDS ORDERED: ENALAPRILAT 1.25 MG/ML VIAL IV PRN (15:00)
--- NOTE | 2016-07-28 15:14 | EKG ---
Date Performed: 07/27/2016 Time Performed: 22:27:55 PTAGE: 51 years EKG: Sinus rhythm POSSIBLE LEFT ATRIAL ENLARGEMENT ANTEROSEPTAL MYOCARDIAL INFARCTION ACUTE [place] PREVIOUS TRACING : 07/27/2016 17.23 Since previous tracing, no significant change noted DOCTOR: Tanna Pascual Interpretating Date/Time 07/28/2016 15:12:11
--- NOTE | 2016-07-28 15:14 | EKG ---
Date Performed: 07/27/2016 Time Performed: 17:23:31 PTAGE: 51 years EKG: SINUS TACHYCARDIA POSSIBLE LEFT ATRIAL ENLARGEMENT POSSIBLE RIGHT VENTRICULAR CONDUCTION DE LAY ANTEROSEPTAL MYOCARDIAL INFARCTION MODERATE T-WAVE ABNORMALITY, CONSIDER LATERAL ISCHEMIA AND/OR ACUTE ANTERIOR INFARCTION ABNORMAL ECG NO PREVIOUS TRACING No prior for comparison DOCTOR: Tanna Pascual Interpretating Date/Time 07/28/2016 15:11:41
--- NOTE | 2016-07-28 17:43 | EC ---
Study Study Date:07/28/2016 STUDY CONCLUSIONS SUMMARY - Left ventricle: The cavity size was normal. Wall thickness was increased in a pattern of moderate LVH. Systolic function was probably normal. The estimated ejection fraction was in the range of 55% to 60%. Although no diagnostic regional wall motion abnormality was identified, this possibility cannot be completely excluded on the basis of this study. Features are consistent with a pseudonormal left ventricular filling pattern, with concomitant abnormal relaxation and increased filling pressure (grade 2 diastolic dysfunction). - Mitral valve: Mild regurgitation. - Left atrium: The atrium was mildly dilated. - Tricuspid valve: Mild-moderate regurgitation. - Pulmonary arteries: PA peak pressure: 65mm Hg (S). - Pericardium, extracardiac: A trivial pericardial effusion was identified. Features were not consistent with tamponade physiology. If LV function is below 40, please consider prescribing an ACEI or ARB or document rationale for non-use. PROCEDURE DATA STUDY STATUS: Elective. Procedure: Transthoracic echocardiography. Image quality was good. Scanning was performed from the parasternal, apical, and subcostal acoustic windows. Study completion: The patient tolerated the procedure well. Transthoracic echocardiography. M-mode, complete 2D, complete spectral Doppler, and color Doppler. Height: Height: 70in. Weight: Weight: 234.5lb. Body mass index: BMI: 33.7kg/m^2. Body surface area: BSA: 2.24m^2. Patient status: Inpatient. CARDIAC ANATOMY LEFT VENTRICLE: The cavity size was normal. Wall thickness was increased in a pattern of moderate LVH. Systolic function was probably normal. The estimated ejection fraction was in the range of 55% to 60%. Although no diagnostic regional wall motion abnormality was identified, this possibility cannot be completely excluded on the basis of this study. Features are consistent with a pseudonormal left ventricular filling pattern, with concomitant abnormal relaxation and increased filling pressure (grade 2 diastolic dysfunction). AORTIC VALVE: Not well visualized. Doppler: There was no stenosis. No significant regurgitation. Valve area: 3.96cm^2(VTI). Indexed valve area: 1.77cm^2/m^2 (VTI). Valve area: 3.76cm^2 (Vmax). Indexed valve area: 1.68cm^2/m^2 (Vmax). Mean gradient: 3mm Hg (S). MITRAL VALVE: The valve appears to be grossly normal. Doppler: There was no evidence for stenosis. Mild regurgitation. Peak gradient: 8mm Hg (D). LEFT ATRIUM: The atrium was mildly dilated. RIGHT VENTRICLE: The cavity size was normal. PULMONIC VALVE: Not well visualized. Doppler: There was no evidence for stenosis. TRICUSPID VALVE: The valve appears to be grossly normal. Doppler: There was no evidence for stenosis. Mild-moderate regurgitation. PERICARDIUM: A trivial pericardial effusion was identified. Doppler: Features were not consistent with tamponade physiology. Patient weight: 234.5lb _Ejection fraction:_ 65-75% _Fractional shortening:_ 32% up to 5Kg 5-11.5Kg 11.6-22.9Kg 23-45Kg 45-57Kg Aortic Root 7-13 <17 13-22 17-27 17-27 LA diam 6-13 <23 24-38 33-47 37-40 RVID 10-17 7-15 7-15 7-18 8-17 LVIDd 12-22 <32 24-38 33-47 37-40 LVPW 2-4 3-6 5-7 6-8 7-8 IVS 2-4 3-6 5-7 6-8 7-8 BASIC MEASUREMENTS ADULT NORMAL Left ventricle LV internal dimension, ED, chordal *42.2 mm 43-52 level, PLAX LV internal dimension, ES, chordal 29.2 mm 23-38 level, PLAX Fractional shortening, chordal level, 31 % >29 PLAX LV posterior wall thickness, ED 15.2 mm IVS/LVPW ratio, ED 1 <1.3 Ventricular septum Septal thickness, ED 15.2 mm Aortic valve Leaflet separation 19 mm 15-26 Aorta Root diameter, ED 33 mm Left atrium Anterior-posterior dimension 46 mm Anterior-posterior dimension index 2.05 cm/m^2 <2.2 BASIC MEASUREMENTS ADULT NORMAL Aortic valve Leaflet separation 19 mm 15-26 DOPPLER MEASUREMENTS ADULT NORMAL Main pulmonary artery Pressure, S *65 mm Hg =30 Aortic valve Peak velocity, S 116 cm/s Mean velocity, S 86.6 cm/s VTI, S 17.8 cm Mean gradient, S 3 mm Hg Valve area, VTI 3.96 cm^2 Valve area index, VTI 1.77 cm^2/m^2 Valve area, Vmax 3.76 cm^2 Valve area index, Vmax 1.68 cm^2/m^2 Mitral valve Peak E-wave velocity 141 cm/s Peak A-wave velocity 30.2 cm/s Deceleration time *134 ms 150-230 Peak gradient, D 8 mm Hg Peak E/A ratio 4.7 Tricuspid valve Regurgitant peak velocity 392 cm/s Peak RV-RA gradient, S 61 mm Hg Maximal regurgitant velocity 392 cm/s Systemic veins Estimated CVP 5 mm Hg Right ventricle RV pressure, S *66 mm Hg <30 Pulmonic valve Peak velocity, S 53.8 cm/s LEGEND: Mean values are shown as u=mean value. Asterisk (*) florian values outside specified normal range. Prepared and signed by Buck Nj [id number]
[2016-07-28] MEDS: ENOXAPARIN SODIUM 40 MG/0.4 ML SYRINGE SQ SCH (19:49)
[2016-07-28] MEDS: ATORVASTATIN 20 MG TAB PO SCH (19:49)
[2016-07-29] VITALS (23 sets, daily range): BP systolic 144–201; BP diastolic 77–122; PULSE 66–87; RESP 16–18; TEMP 98.1–98.5; O2SAT 94–97
[2016-07-29] MEDS: cloNIDine HCL 0.1 MG TAB PO PRN ×2 (03:08→16:16)
[2016-07-29] MEDS: CHLORHEXIDINE GLUCONATE 2 % 1 PACK (2 CLOTHS)(taper/protocol) TOP SCH (04:00)
[2016-07-29] MEDS: METOPROLOL TARTRATE 25 MG TAB PO SCH (05:07)
--- NOTE | 2016-07-29 08:08 | HHI.PR ---
Subjective Remarks Still with some cough. No pain. No fever or chills. BP still elevated. Denies headache, n/v/d/c. Objective Vitals Vital Signs Date Time Temp Pulse Resp B/P Pulse Ox O2 Delivery O2 Flow Rate FiO2 07/29/16 06:00 86 07/29/16 05:00 73 07/29/16 04:00 79 07/29/16 04:00 98.1 79 18 179/99 96 07/29/16 03:00 86 07/29/16 03:00 98.5 87 18 201/122 95 Manual Cuff/Auscultation 07/29/16 02:00 81 07/29/16 00:00 82 07/29/16 00:00 98.4 82 18 144/92 95 07/28/16 22:00 70 07/28/16 20:00 67 07/28/16 20:00 98.6 81 18 168/83 96 07/28/16 18:00 67 07/28/16 16:00 97.9 78 14 175/88 93 07/28/16 16:00 80 07/28/16 14:00 67 07/28/16 12:00 80 07/28/16 10:00 67 I/O 07/28/16 07/28/16 07/28/16 07/29/16 07/29/16 07/29/16 07:00 15:00 23:00 07:00 15:00 23:00 Intake Total 1239 ml 240 ml 500 ml 720 ml Output Total 300 ml 400 ml Balance 1239 ml -60 ml 500 ml 320 ml Intake Oral 240 ml 240 ml 500 ml 720 ml IV Total 999 ml 0 ml Output Urine Total 300 ml 400 ml # Voids 2 2 # Bowel Movements 0 Result Diagram: 07/28/16 0420 07/28/16 [address] Angiography 07/27/16 1820 Signed Impressions: Service Date/Time: July 19:32 - CONCLUSION: 1. No pulmonary embolus. 2. Suspected mild failure. Heart size relatively normal. Small to moderate, age and etiology-indeterminate pericardial effusion. Doubt tamponade. 3. Fatty liver. Anand Goodman MD Chest X-Ray 07/27/16 1725 Signed Impressions: Service Date/Time: July 17:36 - CONCLUSION: No acute disease. Anand Sultana MD Objective Remarks GENERAL: Pleasant 51 yo male, well nourished, well developed patient, in nad. SKIN: Warm and dry. HEAD: Atraumatic. Normocephalic. EYES: Pupils equal and round. No scleral icterus. No injection or drainage. ENT: No nasal bleeding or discharge. Mucous membranes pink and moist. NECK: Trachea midline. No JVD. CARDIOVASCULAR: Regular rate and rhythm. RESPIRATORY: No accessory muscle use. Clear to auscultation. Breath sounds equal bilaterally. GASTROINTESTINAL: Abdomen soft, non-tender, nondistended. Hepatic and splenic margins not palpable. MUSCULOSKELETAL: Extremities without clubbing, cyanosis, or edema. No obvious deformities. NEUROLOGICAL: Awake and alert. No obvious cranial nerve deficits. Motor grossly within normal limits. Five out of 5 muscle strength in the arms and legs. Normal speech. PSYCHIATRIC: Appropriate mood and affect; insight and judgment normal. A/P Problem List: (1) Hypertensive emergency ICD Code: I16.1 Status: Acute Assessment and Plan 51-year-old male that presents to the ED for evaluation of cough/ sob, HTN was found to have severe elevated blood pressure; 1. Presenting Hypertensive emergency with symptoms of shortness of breath and acute kidney injury, patient may have chronic kidney disease stage III due to history of uncontrolled blood pressures, initially was on nitro drip however switched to labetalol drip and admitted to ICU. This time attempted to wean off labetalol drip and start by mouth antihypertensives for transfer to telemetry floor. D-dimer positive in the .90s . No PE on CTA. C. 2. Suspected mild failure. Heart size relatively normal. Small to moderate, age and etiology- indeterminate pericardial effusion. Cardiology consultation obtained and 2-D echo also pending.. EKG shows sinus tachycardia with no sign of acute ischemia However 2nd EKG is changed and shows ischemic changes. Dr Arndt cardiology was notified by the changes, patient remains asymptomatic along with having negative cardiac enzymes and no chest pain. Change metoprolol to 50 m gpo bid. continue amlodipine, BP still elevated will add lisinopril 2. Acute kidney injury with underlying chronic kidney disease stage III from likely long-term uncontrolled hypertension, improving 3. Obesity with BMI of 33. Weight loss counseling, check lipid profile, A1c - hyperlipidemia start statin 4. DVT prophylaxisLovenox and SCDs. 5. HypokalemiaMonitor and replace as need. DC when BP improved and cleared by cardiology Estephania Chacon MD Jul 29, 2016 08:08
[2016-07-29] MEDS ORDERED: LISINOPRIL 5 MG TAB PO SCH (09:00)
[2016-07-29] MEDS ORDERED: LISINOPRIL 10 MG TAB PO SCH (09:00)
[2016-07-29] MEDS: ASPIRIN EC 81 MG TABEC PO SCH (09:16)
[2016-07-29] MEDS: SODIUM CHLORIDE 0.9% FLUSH 5 ML FLUSH FLUSH SCH ×2 (09:18→20:52)
[2016-07-29] MEDS: METOPROLOL TARTRATE 50 MG TAB PO SCH ×2 (09:19→20:28)
--- NOTE | 2016-07-29 10:41 | PD.CARD.PN ---
Subjective Subjective Remarks No chest pain, no shortness of breath Objective Medications Current Medications Medications (Trade) Dose Ordered Sig/Nhan Route Start Time Stop Time Status Last Admin (NS Flush) 2 ml UNSCH PRN FLUSH 07/27/16 20:30 (NS Flush) 2 ml BID FLUSH 07/27/16 21:00 07/29/16 09:18 (Tylenol) 650 mg Q4H PRN PO 07/27/16 20:30 07/28/16 01:22 (Zofran Inj) 4 mg Q6H PRN IVP 07/27/16 20:30 (Compazine Supp) 25 mg Q12H PRN MN 07/27/16 20:30 (Dulcolax Supp) 10 mg DAILY PRN MN 07/27/16 20:30 (Milk Of Magnesia Liq) 30 ml Q12H PRN PO 07/27/16 20:30 (Senokot) 17.2 mg Q12H PRN PO 07/27/16 20:30 (Restoril) 15 mg HS PRN PO 07/27/16 20:30 (Lovenox Inj) 40 mg Q24H SQ 07/27/16 21:00 07/28/16 19:49 (Ecotrin Ec) 81 mg DAILY PO 07/28/16 09:00 07/29/16 09:16 (Lipitor) 20 mg HS PO 07/28/16 21:00 07/28/16 19:49 Labetalol HCl 10 mg 10 mg Q4H PRN IV PUSH 07/28/16 00:15 07/28/16 00:25 (Trandate Inj/NS 250 ml Inj) 250 ml @ 0 mls/hr TITRATE IV 07/28/16 00:15 07/28/16 02:50 Miscellaneous Information Patient in critical care unit? Ass... Q361D XX 07/28/16 02:30 (Chlorhexidine 2% Cloth) 3 pack DAILY@04 TOP 07/28/16 04:00 08/01/16 04:01 07/28/16 02:45 (Chlorhexidine 2% Cloth) 3 pack UNSCH PRN TOP 07/28/16 02:30 08/02/16 02:24 (Norvasc) 10 mg DAILY PO 07/28/16 12:45 07/29/16 09:16 (Vasotec Inj) 1.25 mg Q6H PRN IV 07/28/16 15:00 (Catapres) 0.1 mg Q6H PRN PO 07/28/16 15:00 07/29/16 03:08 (Lopressor) 50 mg BID PO 07/29/16 09:00 07/29/16 09:19 (Prinivil) 2.5 mg DAILY PO 07/29/16 09:00 07/29/16 09:19 (Tessalon) 100 mg TID PRN PO 07/29/16 10:45 UNV Vital Signs / I&O Vital Signs Date Time Temp Pulse Resp B/P Pulse Ox O2 Delivery O2 Flow Rate FiO2 07/29/16 08:15 72 07/29/16 08:15 98.4 78 16 176/96 94 07/29/16 06:00 86 07/29/16 05:00 73 07/29/16 04:00 79 07/29/16 04:00 98.1 79 18 179/99 96 07/29/16 03:00 86 07/29/16 03:00 98.5 87 18 201/122 95 Manual Cuff/Auscultation 07/29/16 02:00 81 07/29/16 00:00 82 07/29/16 00:00 98.4 82 18 144/92 95 07/28/16 22:00 70 07/28/16 20:00 67 07/28/16 20:00 98.6 81 18 168/83 96 07/28/16 18:00 67 07/28/16 16:00 97.9 78 14 175/88 93 07/28/16 16:00 80 07/28/16 14:00 67 07/28/16 12:00 80 I/O 07/28/16 07/28/16 07/28/16 07/29/16 07/29/16 07/29/16 07:00 15:00 23:00 07:00 15:00 23:00 Intake Total 1239 ml 240 ml 500 ml 720 ml Output Total 300 ml 400 ml Balance 1239 ml -60 ml 500 ml 320 ml Intake Oral 240 ml 240 ml 500 ml 720 ml IV Total 999 ml 0 ml Output Urine Total 300 ml 400 ml # Voids 2 2 # Bowel Movements 0 Physical Exam GENERAL: SKIN: Warm and dry. HEAD: Atraumatic. Normocephalic. EYES: Pupils equal and round. No scleral icterus. No injection or drainage. ENT: No nasal bleeding or discharge. Mucous membranes pink and moist. NECK: Trachea midline. No JVD. CARDIOVASCULAR: Regular rate and rhythm. RESPIRATORY: No accessory muscle use. Clear to auscultation. Breath sounds equal bilaterally. GASTROINTESTINAL: Abdomen soft, non-tender, nondistended. Hepatic and splenic margins not palpable. MUSCULOSKELETAL: Extremities without clubbing, cyanosis, or edema. No obvious deformities. NEUROLOGICAL: Awake and alert. No obvious cranial nerve deficits. Motor grossly within normal limits. Five out of 5 muscle strength in the arms and legs. Normal speech. PSYCHIATRIC: Appropriate mood and affect; insight and judgment normal. Laboratory Laboratory Tests Test 07/27/16 07/27/16 07/28/16 07/28/16 17:29 22:10 02:00 04:20 White Blood Count 12.2 TH/MM3 10.7 TH/MM3 (4.0-11.0) (4.0-11.0) Red Blood Count 5.18 MIL/MM3 4.24 MIL/MM3 (4.50-5.90) (4.50-5.90) Hemoglobin 14.4 GM/DL 11.9 GM/DL (13.0-17.0) (13.0-17.0) Hematocrit 42.5 % 34.5 % (39.0-51.0) (39.0-51.0) Mean Corpuscular Volume 82.0 FL 81.5 FL (80.0-100.0) (80.0-100.0) Mean Corpuscular Hemoglobin 27.8 PG 28.1 PG (27.0-34.0) (27.0-34.0) Mean Corpuscular Hemoglobin 33.9 % 34.5 % Concent (32.0-36.0) (32.0-36.0) Red Cell Distribution Width 13.6 % 13.7 % (11.6-17.2) (11.6-17.2) Platelet Count 268 TH/MM3 211 TH/MM3 (150-450) (150-450) Mean Platelet Volume 7.0 FL 7.1 FL (7.0-11.0) (7.0-11.0) Neutrophils (%) (Auto) 80.8 % 81.7 % (16.0-70.0) (16.0-70.0) Lymphocytes (%) (Auto) 10.0 % 9.0 % (9.0-44.0) (9.0-44.0) Monocytes (%) (Auto) 5.6 % (0.0-8.0) 7.0 % (0.0-8.0) Eosinophils (%) (Auto) 2.7 % (0.0-4.0) 1.8 % (0.0-4.0) Basophils (%) (Auto) 0.9 % (0.0-2.0) 0.5 % (0.0-2.0) Neutrophils # (Auto) 9.9 TH/MM3 8.7 TH/MM3 (1.8-7.7) (1.8-7.7) Lymphocytes # (Auto) 1.2 TH/MM3 1.0 TH/MM3 (1.0-4.8) (1.0-4.8) Monocytes # (Auto) 0.7 TH/MM3 0.7 TH/MM3 (0-0.9) (0-0.9) Eosinophils # (Auto) 0.3 TH/MM3 0.2 TH/MM3 (0-0.4) (0-0.4) Basophils # (Auto) 0.1 TH/MM3 0.1 TH/MM3 (0-0.2) (0-0.2) CBC Comment DIFF FINAL DIFF FINAL Differential Comment Prothrombin Time 11.1 SEC (9.8-11.6) Prothromb Time International 1.0 RATIO Ratio Activated Partial 33.8 SEC Thromboplast Time (24.3-30.1) D-Dimer Quantitative (PE/DVT) 0.95 MG/L FEU (0.00-0.50) Sodium Level 138 MEQ/L 138 MEQ/L (136-145) (136-145) Potassium Level 3.1 MEQ/L 3.3 MEQ/L (3.5-5.1) (3.5-5.1) Chloride Level 100 MEQ/L 100 MEQ/L (98-107) (98-107) Carbon Dioxide Level 29.2 MEQ/L 28.8 MEQ/L (21.0-32.0) (21.0-32.0) Anion Gap 9 MEQ/L (5-15) 9 MEQ/L (5-15) Blood Urea Nitrogen 16 MG/DL (7-18) 16 MG/DL (7-18) Creatinine 1.38 MG/DL 1.22 MG/DL (0.60-1.30) (0.60-1.30) Estimat Glomerular Filtration 55 ML/MIN (>89) 63 ML/MIN (>89) Rate Random Glucose 109 MG/DL 133 MG/DL (74-106) (74-106) Hemoglobin A1c 5.0 % (4.3-6.0) Calcium Level 8.9 MG/DL 8.5 MG/DL (8.5-10.1) (8.5-10.1) Magnesium Level 2.3 MG/DL (1.5-2.5) Total Bilirubin 1.1 MG/DL 1.0 MG/DL (0.2-1.0) (0.2-1.0) Direct Bilirubin 0.3 MG/DL (0.0-0.2) Indirect Bilirubin 0.8 MG/DL (0.0-0.8) Aspartate Amino Transf 23 U/L (15-37) 14 U/L (15-37) (AST/SGOT) Alanine Aminotransferase 43 U/L (12-78) 29 U/L (12-78) (ALT/SGPT) Alkaline Phosphatase 77 U/L (45-117) 60 U/L (45-117) Total Creatine Kinase 162 U/L (39-308) Creatine Kinase MB 0.9 NG/ML (0.5-3.6) Troponin I 0.03 NG/ML 0.04 NG/ML 0.05 NG/ML (0.02-0.05) (0.02-0.05) (0.02-0.05) B-Type Natriuretic Peptide 201 PG/ML (0-100) Total Protein 8.0 GM/DL 6.2 GM/DL (6.4-8.2) (6.4-8.2) Albumin 4.1 GM/DL 3.1 GM/DL (3.4-5.0) (3.4-5.0) Triglycerides Level 110 MG/DL (42-150) Cholesterol Level 215 MG/DL (120-200) LDL Cholesterol 155 MG/DL (0-99) HDL Cholesterol 37.7 MG/DL (40.0-60.0) Cholesterol/HDL Ratio 5.70 RATIO Nasal Screen MRSA (PCR) NEGATIVE (NEGATIVE) Assessment and Plan Problem List: (1) Hypertensive emergency (2) Acute kidney injury (3) Obesity (BMI 30.0-34.9) Assessment and Plan 1) EF 55-60%, stage 2 diastolic dysfunction 2) Still hypertensive on Norvasc/BB, will change Lisinopril to 10mg daily 3) Lasix x1 dose today 4) Once BP stable, plan discharge with follow up in the office for stress testing and may need CRISTÓBAL Buck Steward DO Jul 29, 2016 10:41
[2016-07-29] MEDS ORDERED: FUROSEMIDE 40 MG/4 ML VIAL IV PUSH ONE (10:45)
[2016-07-29] MEDS ORDERED: BENZONATATE 100 MG CAP PO PRN (11:00)
[2016-07-29] MEDS: LISINOPRIL 10 MG TAB PO SCH (11:00)
[2016-07-29] MEDS: ATORVASTATIN 20 MG TAB PO SCH (20:28)
[2016-07-29] MEDS: ENOXAPARIN SODIUM 40 MG/0.4 ML SYRINGE SQ SCH (20:34)
[2016-07-30] VITALS (26 sets, daily range): BP systolic 156–190; BP diastolic 84–108; PULSE 62–74; RESP 16–18; TEMP 97.5–98.7; O2SAT 97–99
[2016-07-30] MEDS: CHLORHEXIDINE GLUCONATE 2 % 1 PACK (2 CLOTHS)(taper/protocol) TOP SCH (04:00)
[2016-07-30 04:56] LABS: BICARBONATE 27.8 MEQ/L (21.0-32.0); POTASSIUM 3.9 MEQ/L (3.5-5.1)
[2016-07-30] MEDS: cloNIDine HCL 0.1 MG TAB PO PRN (05:00)
[2016-07-30] MEDS: ASPIRIN EC 81 MG TABEC PO SCH (08:26)
[2016-07-30] MEDS: LISINOPRIL 10 MG TAB PO SCH (08:26)
[2016-07-30] MEDS: METOPROLOL TARTRATE 50 MG TAB PO SCH ×2 (08:26→21:01)
[2016-07-30] MEDS: SODIUM CHLORIDE 0.9% FLUSH 5 ML FLUSH FLUSH SCH ×2 (08:26→21:00)
--- NOTE | 2016-07-30 09:16 | PD.CARD.PN ---
Subjective Subjective Remarks No CP/SOB Objective Medications Current Medications Medications (Trade) Dose Ordered Sig/Nhan Route Start Time Stop Time Status Last Admin (NS Flush) 2 ml UNSCH PRN FLUSH 07/27/16 20:30 (NS Flush) 2 ml BID FLUSH 07/27/16 21:00 07/30/16 08:26 (Tylenol) 650 mg Q4H PRN PO 07/27/16 20:30 07/28/16 01:22 (Zofran Inj) 4 mg Q6H PRN IVP 07/27/16 20:30 (Compazine Supp) 25 mg Q12H PRN MS 07/27/16 20:30 (Dulcolax Supp) 10 mg DAILY PRN MS 07/27/16 20:30 (Milk Of Magnesia Liq) 30 ml Q12H PRN PO 07/27/16 20:30 (Senokot) 17.2 mg Q12H PRN PO 07/27/16 20:30 (Restoril) 15 mg HS PRN PO 07/27/16 20:30 (Lovenox Inj) 40 mg Q24H SQ 07/27/16 21:00 07/29/16 20:34 (Ecotrin Ec) 81 mg DAILY PO 07/28/16 09:00 07/30/16 08:26 (Lipitor) 20 mg HS PO 07/28/16 21:00 07/29/16 20:28 Labetalol HCl 10 mg 10 mg Q4H PRN IV PUSH 07/28/16 00:15 07/28/16 00:25 (Trandate Inj/NS 250 ml Inj) 250 ml @ 0 mls/hr TITRATE IV 07/28/16 00:15 07/28/16 02:50 Miscellaneous Information Patient in critical care unit? Ass... Q361D XX 07/28/16 02:30 (Chlorhexidine 2% Cloth) 3 pack DAILY@04 TOP 07/28/16 04:00 08/01/16 04:01 07/28/16 02:45 (Chlorhexidine 2% Cloth) 3 pack UNSCH PRN TOP 07/28/16 02:30 08/02/16 02:24 (Vasotec Inj) 1.25 mg Q6H PRN IV 07/28/16 15:00 (Catapres) 0.1 mg Q6H PRN PO 07/28/16 15:00 07/30/16 05:00 (Lopressor) 50 mg BID PO 07/29/16 09:00 07/30/16 08:26 (Tessalon) 100 mg TID PRN PO 07/29/16 11:00 (Prinivil) 10 mg DAILY PO 07/29/16 11:00 07/30/16 08:26 (Procardia) 10 mg Q8HR PO 07/30/16 08:30 Vital Signs / I&O Vital Signs Date Time Temp Pulse Resp B/P Pulse Ox O2 Delivery O2 Flow Rate FiO2 07/30/16 06:29 66 07/30/16 05:00 67 07/30/16 04:08 67 07/30/16 04:00 98.1 67 18 175/100 98 07/30/16 03:43 67 07/30/16 00:00 98.1 73 18 159/91 98 07/29/16 21:02 67 07/29/16 20:00 75 07/29/16 20:00 73 18 148/77 97 07/29/16 19:00 73 07/29/16 18:01 75 07/29/16 17:00 76 07/29/16 16:01 69 07/29/16 15:45 98.2 75 16 175/106 96 07/29/16 15:00 74 07/29/16 14:00 71 07/29/16 13:00 66 07/29/16 12:01 72 07/29/16 11:45 98.3 74 16 172/100 96 07/29/16 11:00 75 07/29/16 10:00 74 I/O 07/29/16 07/29/16 07/29/16 07/30/16 07/30/16 07/30/16 07:00 15:00 23:00 07:00 15:00 23:00 Intake Total 720 ml 600 ml 420 ml Output Total 400 ml 590 ml 1450 ml Balance 320 ml 10 ml -1030 ml Intake Oral 720 ml 600 ml 420 ml Output Urine Total 400 ml 590 ml 1450 ml # Voids 2 5 3 # Bowel Movements 1 Physical Exam GENERAL: SKIN: Warm and dry. HEAD: Atraumatic. Normocephalic. EYES: Pupils equal and round. No scleral icterus. No injection or drainage. ENT: No nasal bleeding or discharge. Mucous membranes pink and moist. NECK: Trachea midline. No JVD. CARDIOVASCULAR: Regular rate and rhythm. RESPIRATORY: No accessory muscle use. Clear to auscultation. Breath sounds equal bilaterally. GASTROINTESTINAL: Abdomen soft, non-tender, nondistended. Hepatic and splenic margins not palpable. MUSCULOSKELETAL: Extremities without clubbing, cyanosis, or edema. No obvious deformities. NEUROLOGICAL: Awake and alert. No obvious cranial nerve deficits. Motor grossly within normal limits. Five out of 5 muscle strength in the arms and legs. Normal speech. PSYCHIATRIC: Appropriate mood and affect; insight and judgment normal. Laboratory Laboratory Tests Test 07/30/16 03:45 Sodium Level 140 MEQ/L Potassium Level 3.9 MEQ/L Chloride Level 102 MEQ/L Carbon Dioxide Level 27.8 MEQ/L Anion Gap 10 MEQ/L Blood Urea Nitrogen 18 MG/DL Creatinine 1.20 MG/DL Estimat Glomerular Filtration 64 ML/MIN Rate Random Glucose 104 MG/DL Calcium Level 8.4 MG/DL Assessment and Plan Problem List: (1) Hypertensive emergency (2) Acute kidney injury (3) Obesity (BMI 30.0-34.9) Assessment and Plan 1) EF 55-60%, stage 2 diastolic dysfunction 2) Still hypertensive on Norvasc/BB/Lisinopril... changed Norvasc to Procardia 10mg q8hrs, can be titrated to 20mg q8hrs... on discharge can change to Procardia XL 3) No further cough, may be due to pulmonary edema due to HTN emergency 4) Once BP stable, plan discharge with follow up in the office for stress testing and may need CRISTÓBAL Buck Steward DO Jul 30, 2016 09:16
--- NOTE | 2016-07-30 09:24 | HHI.FPPN ---
Subjective Remarks Patient seen and examined this am. Vitals stable, BP remains elevated. Denies CP or SOB. Denies any difficulty breathing. No concerns this am. Objective Vitals Vital Signs Date Time Temp Pulse Resp B/P Pulse Ox O2 Delivery O2 Flow Rate FiO2 07/30/16 06:29 66 07/30/16 05:00 67 07/30/16 04:08 67 07/30/16 04:00 98.1 67 18 175/100 98 07/30/16 03:43 67 07/30/16 00:00 98.1 73 18 159/91 98 07/29/16 21:02 67 07/29/16 20:00 75 07/29/16 20:00 73 18 148/77 97 07/29/16 19:00 73 07/29/16 18:01 75 07/29/16 17:00 76 07/29/16 16:01 69 07/29/16 15:45 98.2 75 16 175/106 96 07/29/16 15:00 74 07/29/16 14:00 71 07/29/16 13:00 66 07/29/16 12:01 72 07/29/16 11:45 98.3 74 16 172/100 96 07/29/16 11:00 75 07/29/16 10:00 74 I/O 07/29/16 07/29/16 07/29/16 07/30/16 07/30/16 07/30/16 07:00 15:00 23:00 07:00 15:00 23:00 Intake Total 720 ml 600 ml 420 ml Output Total 400 ml 590 ml 1450 ml Balance 320 ml 10 ml -1030 ml Intake Oral 720 ml 600 ml 420 ml Output Urine Total 400 ml 590 ml 1450 ml # Voids 2 5 3 # Bowel Movements 1 Result Diagram: 07/28/16 0420 07/30/16 [address] Angiography [id number] Signed Impressions: Service Date/Time: July 19:32 - CONCLUSION: 1. No pulmonary embolus. 2. Suspected mild failure. Heart size relatively normal. Small to moderate, age and etiology-indeterminate pericardial effusion. Doubt tamponade. 3. Fatty liver. Anand Goodman MD Chest X-Ray [id number] Signed Impressions: Service Date/Time: July 17:36 - CONCLUSION: No acute disease. Anand Sultana MD Objective Remarks GENERAL: Pleasant 51 yo male, well nourished, well developed patient, in nad. SKIN: Warm and dry. HEAD: Atraumatic. Normocephalic. EYES: Pupils equal and round. No scleral icterus. No injection or drainage. ENT: No nasal bleeding or discharge. Mucous membranes pink and moist. NECK: Trachea midline. No JVD. CARDIOVASCULAR: Regular rate and rhythm. RESPIRATORY: No accessory muscle use. Clear to auscultation. Breath sounds equal bilaterally. GASTROINTESTINAL: Abdomen soft, non-tender, nondistended. Hepatic and splenic margins not palpable. MUSCULOSKELETAL: Extremities without clubbing, cyanosis, or edema. No obvious deformities. NEUROLOGICAL: Awake and alert. No obvious cranial nerve deficits. Motor grossly within normal limits. Normal speech. PSYCHIATRIC: Appropriate mood and affect; insight and judgment normal. A/P Assessment and Plan 51-year-old male that presents to the ED for evaluation of cough/ sob, HTN was found to have severe elevated blood pressure; 1. Hypertensive emergency w/ ALAN. S/P nitro, and S/P labetalol drip. Current regemine: lisinopril 10 mg, lopressor 50 mg PO BID, Procardia 10 mg q8hrs. Labetolol, vasotec, and clonidine prn. * ECHO with normal systolic fxn, EF 55-60% & grade 2 diastolic dysfxn, mild regur of mitral valve, moderate regurg of tricuspid valve, LA dilated. Trivial pericardial effusion. * D-dimer positive in the .90s . No PE on CTA. C. 2. Suspected mild failure. Heart size relatively normal. Small to moderate, age and etiology- indeterminate pericardial effusion. * EKG shows sinus tachycardia with no sign of acute ischemia, repeat 2nd EKG is changed and shows ischemic changes- Dr Arndt cardiology was notified by the changes, patient remained asymptomatic w/ negative cardiac enzymes and no chest pain. * Cards following: can dc when BP stable, f/u in office will need stress test. 2. Acute kidney injury with underlying chronic kidney disease stage III from likely long-term uncontrolled hypertension, improving 3. Obesity with BMI of 33. 4. Hyperlipidemia, lipitor 20 hs 5. DVT prophylaxisLovenox and SCDs. 6. Hypokalemia- resolved. Rosetta Dimas MD R3 Jul 30, 2016 09:24
[2016-07-30] MEDS: NIFEdipine 10 MG CAP PO SCH ×3 (09:55→21:05)
[2016-07-30] MEDS: ENOXAPARIN SODIUM 40 MG/0.4 ML SYRINGE SQ SCH (21:01)
[2016-07-30] MEDS: ATORVASTATIN 20 MG TAB PO SCH (21:01)
[2016-07-31] VITALS (17 sets, daily range): BP systolic 142–193; BP diastolic 79–123; PULSE 63–80; RESP 16–20; TEMP 97.9–98.7; O2SAT 96–100
[2016-07-31] MEDS: CHLORHEXIDINE GLUCONATE 2 % 1 PACK (2 CLOTHS)(taper/protocol) TOP SCH (04:00)
[2016-07-31] MEDS: NIFEdipine 10 MG CAP PO SCH (06:00)
--- NOTE | 2016-07-31 08:15 | HHI.PR ---
Subjective Remarks In the chair. SBP 170s. Says he doesn't have any pain, sob, n/v/d/c. Still coughing at night. No fever or chills. Objective Vitals Vital Signs Date Time Temp Pulse Resp B/P Pulse Ox O2 Delivery O2 Flow Rate FiO2 07/31/16 06:00 67 07/31/16 05:12 67 07/31/16 04:00 98.7 65 18 176/104 97 07/31/16 04:00 65 07/31/16 03:00 65 07/31/16 02:00 69 07/31/16 01:00 67 07/31/16 00:00 71 07/31/16 00:00 98.7 71 18 154/86 97 07/30/16 23:00 71 07/30/16 22:00 70 07/30/16 21:00 70 07/30/16 20:00 73 07/30/16 20:00 98.7 74 18 190/104 98 07/30/16 19:00 74 07/30/16 18:01 73 07/30/16 17:01 70 07/30/16 16:00 66 07/30/16 15:15 98.2 71 16 156/84 99 07/30/16 15:00 65 07/30/16 14:00 62 07/30/16 13:01 65 07/30/16 12:01 67 07/30/16 11:01 97.5 64 16 166/99 98 07/30/16 11:00 66 07/30/16 10:00 63 07/30/16 09:00 65 I/O 07/30/16 07/30/16 07/30/16 07/31/16 07/31/16 07/31/16 07:00 15:00 23:00 07:00 15:00 23:00 Intake Total 420 ml 1524 ml 480 ml Output Total 1450 ml 725 ml 1025 ml Balance -1030 ml 799 ml -545 ml Intake Oral 420 ml 1524 ml 480 ml Output Urine Total 1450 ml 725 ml 1025 ml # Voids 3 4 3 # Bowel Movements 1 Result Diagram: 07/28/16 0420 07/30/16 [address] Angiography 07/27/16 1820 Signed Impressions: Service Date/Time: July 19:32 - CONCLUSION: 1. No pulmonary embolus. 2. Suspected mild failure. Heart size relatively normal. Small to moderate, age and etiology-indeterminate pericardial effusion. Doubt tamponade. 3. Fatty liver. Anand Goodman MD Chest X-Ray 07/27/16 4503 Signed Impressions: Service Date/Time: July 17:36 - CONCLUSION: No acute disease. Anand Sultana MD Objective Remarks GENERAL: Pleasant 51 yo male, well nourished, well developed patient, in nad. SKIN: Warm and dry. HEAD: Atraumatic. Normocephalic. EYES: Pupils equal and round. No scleral icterus. No injection or drainage. ENT: No nasal bleeding or discharge. Mucous membranes pink and moist. NECK: Trachea midline. No JVD. CARDIOVASCULAR: Regular rate and rhythm. RESPIRATORY: No accessory muscle use. Clear to auscultation. Breath sounds equal bilaterally. GASTROINTESTINAL: Abdomen soft, non-tender, nondistended. Hepatic and splenic margins not palpable. MUSCULOSKELETAL: Extremities without clubbing, cyanosis, or edema. No obvious deformities. NEUROLOGICAL: Awake and alert. No obvious cranial nerve deficits. Motor grossly within normal limits. Five out of 5 muscle strength in the arms and legs. Normal speech. PSYCHIATRIC: Appropriate mood and affect; insight and judgment normal. A/P Problem List: (1) Hypertensive emergency ICD Code: I16.1 Status: Acute Assessment and Plan 51-year-old male that presents to the ED for evaluation of cough/ sob, HTN was found to have severe elevated blood pressure; 1. Presenting Hypertensive emergency with symptoms of shortness of breath and acute kidney injury, patient may have chronic kidney disease stage III due to history of uncontrolled blood pressures, initially was on nitro drip however switched to labetalol drip and admitted to ICU. This time attempted to wean off labetalol drip and start by mouth antihypertensives for transfer to telemetry floor. D-dimer positive in the .90s . No PE on CTA. C. 2. Suspected mild failure. Heart size relatively normal. Small to moderate, age and etiology- indeterminate pericardial effusion. Cardiology consultation obtained and 2-D echo also pending.. EKG shows sinus tachycardia with no sign of acute ischemia However 2nd EKG is changed and shows ischemic changes. Dr Arndt cardiology was notified by the changes, patient remains asymptomatic along with having negative cardiac enzymes and no chest pain. Continue metoprolol to 50 m gpo bid, continue lisinopril. DC amlodipine Increase procardia 07/31/ to 20 mg po tid. 2. Acute kidney injury with underlying chronic kidney disease stage III from likely long-term uncontrolled hypertension, improving 3. Obesity with BMI of 33. Weight loss counseling, check lipid profile, A1c - hyperlipidemia start statin 4. DVT prophylaxisLovenox and SCDs. 5. HypokalemiaMonitor and replace as need. DC when BP improved and cleared by cardiology. To follow up as OP with cardiology and PCP. Patient needs sleep study as OP for CRISTÓBAL and also needs stress test as OP. DC if SBP<160 Estephania Chacon MD Jul 31, 2016 08:15
[2016-07-31] MEDS: ASPIRIN EC 81 MG TABEC PO SCH (09:28)
[2016-07-31] MEDS: SODIUM CHLORIDE 0.9% FLUSH 5 ML FLUSH FLUSH SCH (09:28)
[2016-07-31] MEDS: LISINOPRIL 10 MG TAB PO SCH (09:28)
[2016-07-31] MEDS: METOPROLOL TARTRATE 50 MG TAB PO SCH (09:28)
[2016-07-31] MEDS ORDERED: LISI10TA3 PO (09:56)
[2016-07-31] MEDS ORDERED: METO-309 PO (09:56)
[2016-07-31] MEDS ORDERED: LIPI20TA PO (09:56)
--- NOTE | 2016-07-31 09:56 | HHI.DCPOC ---
Discharge Care Plan Goals to Promote Your Health * To prevent worsening of your condition and complications * To maintain your health at the optimal level Directions to Meet Your Goals Take your medications as prescribed Follow your dietary instruction Follow activity as directed Keep your appointments as scheduled Take your immunizations and boosters as scheduled If your symptoms worsen call your PCP, if no PCP go to Urgent Care Center or Emergency Room Smoking is Dangerous to Your Health. Avoid second hand smoke Call the 24-hour hour crisis hotline for domestic abuse at Estephania Chacon MD Jul 31, 2016 09:56
[2016-07-31] MEDS ORDERED: NIFE1TAB86 PO (09:58)
--- NOTE | 2016-07-31 09:59 | HHI.DS ---
Discharge Summary Admission Date Jul 27, 2016 at 20:07 Discharge Date: Jul 31, 2016 Admitting Diagnosis hypertensive emergency, pneumonia, heart failure (1) Hypertensive emergency ICD Code: I16.1 Procedures none Brief History - From Admission 51-year-old male without PMH that presents to the ED for evaluation of severe hypertension. Per patient for the past 2 weeks she's been having cold-like symptoms that he acuity to bronchitis. Per patient his been taking over-the- counter remedies with some relief. Patient took NyQuil and DayQuil as well as some [place] cold medications to help with the cough and runny nose. Per patient he went recently collar out of medication and he came back with the same symptoms. Per patient he went to the urgent care today to get checked for this but the urgent care evaluated him and found that his blood pressure was in the systolic 300s. Patient was told to come here immediately get checked for this. 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 Per patient he didn't go to any medications he didn't think much of it. Per patient he does take aspirin every day and takes all negative fatty acids. Per patient he has no chest pain. Per patient he has no other symptoms or to cough and runny nose. He states that he has no allergies to medication. He does have asked family history of heart disease on the father's side but not on himself. He denies any surgeries to his chest. He denies having a stress test. He denies any other medical problems. Patient does have a strong family history of high blood pressure in the family. CBC/BMP: 07/28/16 0420 07/30/16 0345 Significant Findings Laboratory Tests Test 07/30/16 03:45 Estimat Glomerular Filtration 64 ML/MIN (>89) Rate Calcium Level 8.4 MG/DL (8.5-10.1) Imaging Reported Meds & Active Scripts Active Famotidine 10 Mg Tab 10 Mg PO BID Procardia XL (Nifedipine) 60 Mg Tab 60 Mg PO DAILY Lisinopril 10 Mg Tab 10 Mg PO DAILY Lopressor (Metoprolol Tartrate) 50 Mg Tab 50 Mg PO BID Lipitor (Atorvastatin Calcium) 20 Mg Tab 20 Mg PO HS Reported Aspirin 81 (Aspirin) 81 Mg Tabdr 81 Mg PO DAILY PE at Discharge GENERAL: Pleasant 51 yo male, well nourished, well developed patient, in nad. SKIN: Warm and dry. HEAD: Atraumatic. Normocephalic. EYES: Pupils equal and round. No scleral icterus. No injection or drainage. ENT: No nasal bleeding or discharge. Mucous membranes pink and moist. NECK: Trachea midline. No JVD. CARDIOVASCULAR: Regular rate and rhythm. RESPIRATORY: No accessory muscle use. Clear to auscultation. Breath sounds equal bilaterally. GASTROINTESTINAL: Abdomen soft, non-tender, nondistended. Hepatic and splenic margins not palpable. MUSCULOSKELETAL: Extremities without clubbing, cyanosis, or edema. No obvious deformities. NEUROLOGICAL: Awake and alert. No obvious cranial nerve deficits. Motor grossly within normal limits. Five out of 5 muscle strength in the arms and legs. Normal speech. PSYCHIATRIC: Appropriate mood and affect; insight and judgment normal. Hospital Course 51-year-old male that presents to the ED for evaluation of cough/ sob, HTN was found to have severe elevated blood pressure; 1. Presenting Hypertensive emergency with symptoms of shortness of breath and acute kidney injury, patient may have chronic kidney disease stage III due to history of uncontrolled blood pressures, initially was on nitro drip however switched to labetalol drip and admitted to ICU. This time attempted to wean off labetalol drip and start by mouth antihypertensives for transfer to telemetry floor. D-dimer positive in the .90s . No PE on CTA. C. 2. Suspected mild failure. Heart size relatively normal. Small to moderate, age and etiology- indeterminate pericardial effusion. Cardiology consultation obtained and 2-D echo also pending.. EKG shows sinus tachycardia with no sign of acute ischemia However 2nd EKG is changed and shows ischemic changes. Dr Arndt cardiology was notified by the changes, patient remains asymptomatic along with having negative cardiac enzymes and no chest pain. Continue metoprolol to 50 m gpo bid, continue lisinopril. DC amlodipine Increase procardia 07/31/ to 20 mg po tid. Changed to procardia XL at discharge per cards. 2. Acute kidney injury with underlying chronic kidney disease stage III from likely long-term uncontrolled hypertension, improving 3. Obesity with BMI of 33. Weight loss counseling, check lipid profile, A1c - hyperlipidemia start statin 4. DVT prophylaxisLovenox and SCDs. 5. HypokalemiaMonitor and replace as need. Improved, BP better controlled. cleared by cards for DC. To follow up as OP with cardiology and PCP. Patient needs sleep study as OP for CRISTÓBAL and also needs stress test as OP. Pt Condition on Discharge: Good Discharge Disposition: Discharge Home Discharge Time: <= 30 minutes Discharge Instructions DIET: Follow Instructions for: Heart Healthy Diet Activities you can perform: Regular-No Restrictions Follow up Referrals: Cardiology - 1 Week with Buck Nj DO PCP Follow-up - 3-5 Days New Orders: Sleep Study New Medications: Famotidine (Famotidine) 10 Mg Tab 10 MG PO BID GERD #60 Ref 0 TAB Nifedipine ER 24 HR (Procardia XL) 60 Mg Tab 60 MG PO DAILY Blood Pressure Management #30 Ref 0 TAB Atorvastatin (Lipitor) 20 Mg Tab 20 MG PO HS Cholesterol Management #30 TAB Lisinopril (Lisinopril) 10 Mg Tab 10 MG PO DAILY Blood Pressure Management #30 TAB Metoprolol Tartrate (Lopressor) 50 Mg Tab 50 MG PO BID Blood Pressure Management #60 TAB Continued Medications: Aspirin DR (Aspirin 81) 81 Mg Tabdr 81 MG PO DAILY Ref 0 TAB Estephania Chacon MD Jul 31, 2016 09:59
[2016-07-31] MEDS ORDERED: FAMO1TAB30 PO (10:01)
[2016-07-31] MEDS: cloNIDine HCL 0.1 MG TAB PO PRN (11:17)
[2016-07-31] MEDS ORDERED: NIFEdipine 10 MG CAP PO SCH (14:00)
--- NOTE | 2016-07-31 17:09 | PD.CARD.PN ---
Subjective Subjective Remarks Patient seen earlier No CP/SOB Objective Medications Reported Meds & Active Scripts Active Famotidine 10 Mg Tab 10 Mg PO BID Procardia XL (Nifedipine) 60 Mg Tab 60 Mg PO DAILY Lisinopril 10 Mg Tab 10 Mg PO DAILY Lopressor (Metoprolol Tartrate) 50 Mg Tab 50 Mg PO BID Lipitor (Atorvastatin Calcium) 20 Mg Tab 20 Mg PO HS Reported Aspirin 81 (Aspirin) 81 Mg Tabdr 81 Mg PO DAILY Vital Signs / I&O Vital Signs Date Time Temp Pulse Resp B/P Pulse Ox O2 Delivery O2 Flow Rate FiO2 07/31/16 15:00 80 07/31/16 15:00 97.9 77 17 154/82 97 07/31/16 14:00 69 07/31/16 13:21 158/90 07/31/16 13:00 63 07/31/16 12:00 69 07/31/16 12:00 178/92 07/31/16 11:00 66 07/31/16 11:00 98.1 69 20 193/123 100 07/31/16 10:00 73 07/31/16 09:00 78 07/31/16 09:00 70 07/31/16 08:00 75 07/31/16 07:00 97.9 74 16 142/79 96 07/31/16 07:00 78 07/31/16 06:00 67 07/31/16 05:12 67 07/31/16 04:00 98.7 65 18 176/104 97 07/31/16 04:00 65 07/31/16 03:00 65 07/31/16 02:00 69 07/31/16 01:00 67 07/31/16 00:00 71 07/31/16 00:00 98.7 71 18 154/86 97 07/30/16 23:00 71 07/30/16 22:00 70 07/30/16 21:00 70 07/30/16 20:00 73 07/30/16 20:00 98.7 74 18 190/104 98 07/30/16 19:00 74 07/30/16 18:01 73 I/O 07/30/16 07/30/16 07/30/16 07/31/16 07/31/16 07/31/16 07:00 15:00 23:00 07:00 15:00 23:00 Intake Total 420 ml 1524 ml 480 ml Output Total 1450 ml 725 ml 1025 ml Balance -1030 ml 799 ml -545 ml Intake Oral 420 ml 1524 ml 480 ml Output Urine Total 1450 ml 725 ml 1025 ml # Voids 3 4 3 # Bowel Movements 1 Physical Exam GENERAL: SKIN: Warm and dry. HEAD: Atraumatic. Normocephalic. EYES: Pupils equal and round. No scleral icterus. No injection or drainage. ENT: No nasal bleeding or discharge. Mucous membranes pink and moist. NECK: Trachea midline. No JVD. CARDIOVASCULAR: Regular rate and rhythm. RESPIRATORY: No accessory muscle use. Clear to auscultation. Breath sounds equal bilaterally. GASTROINTESTINAL: Abdomen soft, non-tender, nondistended. Hepatic and splenic margins not palpable. MUSCULOSKELETAL: Extremities without clubbing, cyanosis, or edema. No obvious deformities. NEUROLOGICAL: Awake and alert. No obvious cranial nerve deficits. Motor grossly within normal limits. Five out of 5 muscle strength in the arms and legs. Normal speech. PSYCHIATRIC: Appropriate mood and affect; insight and judgment normal. Assessment and Plan Problem List: (1) Hypertensive emergency (2) Acute kidney injury (3) Obesity (BMI 30.0-34.9) Assessment and Plan 1) EF 55-60%, stage 2 diastolic dysfunction 2) Started on Procardia 10mg q8hrs, increased to 20mg today but had not received dose adjustment, agree with re-eval of BP this after noon and if stable DC home on Procardia XL 60mg 3) No further cough, may be due to pulmonary edema due to HTN emergency, diuresed well 4) Plan discharge with follow up in the office for stress testing and may need CRISTÓBAL eval 5) Has BP cuff at home, will follow BP and call the office with problems Buck Nj DO Jul 31, 2016 17:09
== END 2016-07-31 15:57 | disposition home or self-care (01) | DRG 683 ==
LOC: NEPE 17:03 → NEDA 20:07 → HCIS 22:56 → HIMW 07-28 01:45 → HCIS 07-29 02:19
PROVIDERS: ADMIT Hospitalist; ATTEND Hospitalist
DX: N17.9 Acute kidney failure, unspecified (principal); I31.3 Pericardial effusion (noninflammatory); I13.10 Hypertensive heart and chronic kidney disease without heart failure, with stage 1 through stage 4 chronic kidney disease, or unspecified chronic kidney disease; I16.1 Hypertensive emergency; K76.0 Fatty (change of) liver, not elsewhere classified; N18.3 Chronic kidney disease, stage 3 (moderate); R00.0 Tachycardia, unspecified; E66.9 Obesity, unspecified; Z82.3 Family history of stroke; E78.5 Hyperlipidemia, unspecified; I12.9 Hypertensive chronic kidney disease with stage 1 through stage 4 chronic kidney disease, or unspecified chronic kidney disease; E87.6 Hypokalemia; I08.1 Rheumatic disorders of both mitral and tricuspid valves; Z68.33 Body mass index [BMI] 33.0-33.9, adult; Z72.0 Tobacco use; Z82.49 Family history of ischemic heart disease and other diseases of the circulatory system
CPT/HCPCS: 71010; 71275; 80048; 80053; 80061; 80076; 82550; 82552; 83036; 83735; 83880; 84484; 85025; 85379; 85610; 85730; 87040; 87641; 93005; 93306; 96365; 96366; J0456; J0696; J1650; J1940; J7050; Q9967